=== PATIENT | female | born 1995 | race Caucasian/White ===

== ENCOUNTER 2018-07-29 14:59 | Inpatient (IN) | payer BC, OTHER ==
[2018-07-29] MEDS ORDERED: Ringers Lactate 1,000 ML IV PRN (15:02)
--- OUTSIDE RECORDS SUMMARY | 2018-07-29 15:02 | XMS REPORT ---
:1995 Author Organization eClinicalWorks Care Team Providers Name Role Phone Maricarmen Mcneil Provider Role Unavailable Allergies No Known Allergies Problems Problem Type Condition Code Onset Dates Condition Status Assessment Normal first in second Z34.02 Active trimester Problem Normal in third trimester Z34.93 Active Medications Medication Code Code Instructions Start End Status Dosage System Date Date [facility] [address] - Orally Once a Active 1 tablet day Vitafol [facility] [id number] 3.33-0.333-34.8 January 06, Active 3 tablets Gummies MG Orally Once a 2018 day Results No Known Results Summary Purpose eClinicalWorks Submission
--- OUTSIDE RECORDS SUMMARY | 2018-07-29 15:02 | XMS REPORT ---
:1995 Author Organization eClinicalWorks Care Team Providers Name Role Phone Maricarmen Mcneil Provider Role Unavailable Allergies No Known Allergies Problems Problem Type Condition Code Onset Dates Condition Status Problem Normal first in second Z34.02 Active trimester Medications Medication Code System Code Instructions Start End Date Status Dosage Date Ferralet 90 [facility] [id number] 90-1 MG Orally May 22, Active 1 tablet Once a day 2018 after a meal Results No Known Results Summary Purpose eClinicalWorks Submission
--- OUTSIDE RECORDS SUMMARY | 2018-07-29 15:02 | XMS REPORT ---
:1995 Author Organization eClinicalWorks Care Team Providers Name Role Phone Maricarmen Mcneil Provider Role Unavailable Allergies No Known Allergies Problems Problem Type Condition Code Onset Dates Condition Status Assessment Normal in third trimester Z34.93 Active Problem Normal in third trimester Z34.93 Active Medications Medication Code Code Instructions Start End Status Dosage System Date Date [facility] [address] - Orally Once a Active 1 tablet day Ferralet 90 [facility] 23103473530 90-1 MG Orally May 22, Active 1 tablet Once a day 2018 after a meal Vitafol [facility] [id number] 3.33-0.333-34.8 January 06, Active 3 tablets Gummies MG Orally Once a 2018 day Results No Known Results Immunizations Vaccine Administration Date TDAP > 7 Years-Adacel Jun 12, 2018 Summary Purpose eClinicalWorks Submission
--- OUTSIDE RECORDS SUMMARY | 2018-07-29 15:02 | XMS REPORT ---
:1995 Author Organization eClinicalWorks Care Team Providers Name Role Phone Maricarmen Mcneil Provider Role Unavailable Allergies No Known Allergies Problems Problem Type Condition Code Onset Dates Condition Status Assessment , unspecified gestational Z34.90 Active age Problem Normal first in second Z34.02 Active trimester Medications Medication Code Code Instructions Start End Status Dosage System Date Date Vitafol [facility] [id number] 3.33-0.333-34.8 January 06, Active 3 tablets Gummies MG Orally Once a 2017 Results No Known Results Summary Purpose eClinicalWorks Submission
--- OUTSIDE RECORDS SUMMARY | 2018-07-29 15:02 | XMS REPORT ---
:1995 Author Organization eClinicalWorks Care Team Providers Name Role Phone Maricarmen Mcneil Provider Role Unavailable Allergies No Known Allergies Problems Problem Type Condition Code Onset Dates Condition Status Problem Normal first in second Z34.02 Active trimester Assessment Normal first in second Z34.02 Active trimester Problem Normal in second trimester Z34.92 Active Medications Medication Code Code Instructions Start End Status Dosage System Date Date Vitafol [facility] [id number] 3.33-0.333-34.8 January 06, Active 3 tablets Gummies MG Orally Once a [address] [facility] [address] - Orally Once a Active 1 tablet day Results No Known Results Summary Purpose eClinicalWorks Submission
--- OUTSIDE RECORDS SUMMARY | 2018-07-29 15:02 | XMS REPORT ---
:1995 Author Organization eClinicalWorks Care Team Providers Name Role Phone Zac [place] Provider Role Unavailable Allergies No Known Allergies Problems Problem Type Condition Code Onset Dates Condition Status Problem Uterine size-date discrepancy in O26.843 Active third trimester Problem Normal in third trimester Z34.93 Active Problem Anemia affecting in third O99.013 Active trimester Assessment Uterine size-date discrepancy in O26.843 Active third trimester Assessment Anemia affecting in third O99.013 Active trimester Assessment Normal in third trimester Z34.93 Active Medications Medication Code Code Instructions Start End Status Dosage System Date Date CitraNatal 90 [facility] [id number] 90-1 & 300 MG Jul 10, Active as directed DHA Orally 2017 Ferralet 90 [facility] [id number] 90-1 MG Orally May 22, Active 1 tablet Once a day 2018 after a meal [facility] [address] - Orally Once a Active 1 tablet day Vitafol [facility] [id number] 3.33-0.333-34.8 December Active 3 tablets Gummies MG Orally Once a 2017 day Results No Known Results Summary Purpose eClinicalWorks Submission
--- OUTSIDE RECORDS SUMMARY | 2018-07-29 15:02 | XMS REPORT ---
[...] Start End Status Dosage System Date Date [facility] [address] - Orally Once a Active 1 tablet day Vitafol [facility] [id number] 3.33-0.333-34.8 January 06, Active 3 tablets Gummies MG Orally Once a 2018 day Results No Known Results Summary Purpose eClinicalWorks Submission
--- OUTSIDE RECORDS SUMMARY | 2018-07-29 15:02 | XMS REPORT ---
:1995 Author Organization eClinicalWorks Care Team Providers Name Role Phone Maricarmen Mcneil Provider Role Unavailable Allergies No Known Allergies Problems Problem Type Condition Code Onset Dates Condition Status Problem Normal first in first Z34.01 Active trimester Assessment Normal first in first Z34.01 Active trimester Problem Normal in first trimester Z34.91 Active Medications Medication Code Code Instructions Start End Status Dosage System Date Date [facility] [address] - Orally Once a Active 1 tablet day Vitafol [facility] [id number] 3.33-0.333-34.8 January 06, Active 3 tablets Gummies MG Orally Once a 2018 day Results Name Result Date Reference Range Unit Abnormality Flag URINALYSIS AUTO W/O SCOPE (05332) Summary Purpose eClinicalWorks Submission
--- OUTSIDE RECORDS SUMMARY | 2018-07-29 15:02 | XMS REPORT ---
:1995 Author Organization eClinicalWorks Care Team Providers Name Role Phone Maricarmen Mcneil Provider Role Unavailable Allergies No Known Allergies Problems Problem Type Condition Code Onset Dates Condition Status Assessment Normal first in second Z34.02 Active trimester Problem Normal first in second Z34.02 Active trimester Medications Medication Code Code Instructions Start End Status Dosage System Date Date Vitafol [facility] [id number] 3.33-0.333-34.8 January 06, Active 3 tablets Gummies MG Orally Once a 2018 day [facility] [address] - Orally Once a Active 1 tablet day Results No Known Results Summary Purpose eClinicalWorks Submission
--- OUTSIDE RECORDS SUMMARY | 2018-07-29 15:02 | XMS REPORT ---
:1995 Author Organization eClinicalWorks Care Team Providers Name Role Phone Zac [place] Provider Role Unavailable Allergies No Known Allergies Problems Problem Type Condition Code Onset Dates Condition Status Assessment Anemia affecting in third O99.013 Active trimester Assessment Needs flu shot Z23 Active Problem Anemia affecting in third O99.013 Active trimester Problem Uterine size-date discrepancy in O26.843 Active third trimester Problem Needs flu shot Z23 Active Assessment Normal in third trimester Z34.93 Active Assessment Uterine size-date discrepancy in O26.843 Active third trimester Problem Normal in third trimester Z34.93 Active Medications Medication Code Code Instructions Start End Status Dosage System Date Date Ferralet 90 [facility] 02244134131 90-1 MG Orally May 22, Active 1 tablet Once a day 2018 after a meal CitraNatal 90 [facility] [id number] 90-1 & 300 MG Active as directed DHA Orally 1 [facility] [address] - Orally Once a Active 1 tablet day Vitafol [facility] [id number] 3.33-0.333-34.8 December Active 3 tablets Gummies MG Orally Once a 2017 day Results No Known Results Immunizations Vaccine Administration Date Afluria Jul 16, 2018 Summary Purpose eClinicalWorks Submission
--- OUTSIDE RECORDS SUMMARY | 2018-07-29 15:02 | XMS REPORT ---
:1995 Author Organization eClinicalWorks Care Team Providers Name Role Phone Zac [place] Provider Role Unavailable Allergies No Known Allergies Problems Problem Type Condition Code Onset Dates Condition Status Problem Anemia affecting in third O99.013 Active trimester Problem Uterine size-date discrepancy in O26.843 Active third trimester Problem Needs flu shot Z23 Active Assessment Normal in third trimester Z34.93 Active Assessment Anemia affecting in third O99.013 Active trimester Problem Normal in third trimester Z34.93 Active Medications Medication Code Code Instructions Start End Status Dosage System Date Date Vitafol [facility] [id number] 3.33-0.333-34.8 December Active 3 tablets Gummies MG Orally Once a [address] [facility] [id number] 90-1 MG Orally May 22, Active 1 tablet Once a day 2018 after a meal CitraNatal [address] [facility] 28223749701 90-1 & 300 MG Active as directed DHA Orally [address] [facility] [address] - Orally Once a Active 1 tablet day Results No Known Results Summary Purpose eClinicalWorks Submission
--- OUTSIDE RECORDS SUMMARY | 2018-07-29 15:02 | XMS REPORT ---
:1995 Author Organization eClinicalWorks Care Team Providers Name Role Phone Maricarmen Mcneil Provider Role Unavailable Allergies No Known Allergies Problems Problem Type Condition Code Onset Dates Condition Status Assessment Normal in third trimester Z34.93 Active Problem Normal in third trimester Z34.93 Active Medications Medication Code Code Instructions Start End Status Dosage System Date Date Vitafol [facility] [id number] 3.33-0.333-34.8 January 06, Active 3 tablets Gummies MG Orally Once a 2018 day [facility] [address] - Orally Once a Active 1 tablet day Ferralet 90 [facility] 50612370410 90-1 MG Orally May 22, Active 1 tablet Once a day 2018 after a meal Results No Known Results Summary Purpose eClinicalWorks Submission
--- OUTSIDE RECORDS SUMMARY | 2018-07-29 15:02 | XMS REPORT ---
:1995 Author Organization eClinicalWorks Care Team Providers Name Role Phone Maricarmen Mcneil Provider Role Unavailable Allergies No Known Allergies Problems Problem Type Condition Code Onset Dates Condition Status Problem Normal first in second Z34.02 Active trimester Medications No Known Medications Results No Known Results Summary Purpose eClinicalWorks Submission
[2018-07-29] MEDS ORDERED: Ringers Lactate 1,000 ML IV SCH (16:00)
[2018-07-29 16:17] VITALS: BMI 27.4
[2018-07-29 16:54] LABS: RPR Titer ND
[2018-07-29 17:00] LABS: Absolute Lymphocytes (CBC) 1.6 K/uL (0.7-4.9); Absolute Monocytes 0.6 K/uL (0.1-1.3); Absolute Neutrophil 3.5 K/uL (1.8-8.0); Basophils % 0.8 % (0-1.3); Eosinophils % 0.3 % (0-4.4); Hematocrit 29.1 % (36.0-45.0); Lymphocytes % 27.4 % (15.3-44.8); MCH 27.3 pg (27.0-35.0); MCV 84.6 fL (80-100); MPV 10.4 fL (7.6-11.3); Monocytes % 10.8 % (3.3-12.3); RBC Red Blood Cell Count 3.44 M/uL (3.86-4.86); Urine Appearance CLOUDY; Urine Blood NEGATIVE (NEG); Urine Color DK YELLOW; Urine Glucose NEGATIVE (NEG); Urine Protein 1+ (NEG); Urine Specific Gravity 1.025 (1.005-1.030); Urine Urobilinogen 0.2 mg/dL (0.2-1.0); Urine pH 6.5 (5.0-7.0)
[2018-07-29] MEDS ORDERED: miSOPROStol 100 MCG TAB VAG SCH (17:00)
[2018-07-29 17:28] LABS: Blood Morphology Comment NOT SEEN (NOT SEEN); Platelet Estimate ADEQ; Urine White Blood Cell Casts OK
[2018-07-29 17:36] LABS: Urine Bilirubin NEGATIVE (NEG); Urine Microscopic Reflex ORDER UMIC
[2018-07-29 17:45] LABS: Urine Bacteria 20-50 /HPF (<20); Urine Culture Reflex Order NOT NEEDED; Urine Mucus MOD /HPF (NONE SEEN); Urine RBC NONE SEEN /HPF (NONE SEEN)
[2018-07-29] MEDS ORDERED: ZOLPIDEM TARTRATE 5 MG TABLET PO PRN (19:24)
[2018-07-29] MEDS ORDERED: LORATADINE 10 MG TAB PO ONE (19:25)
[2018-07-29 22:19] LABS: RPR (Rapid Plasma Reagin) NON-REACT (NON-REACT)
--- NOTE | 2018-07-29 22:45 | P.OBGYNHP ---
Certification for Inpatient Patient admitted to: Inpatient With expected LOS: >2 Midnights Patient will require the following post-hospital care: None Practitioner: I am a practitioner with admitting privileges, knowledge of patient current condition, hospital course, and medical plan of care. Services: Services provided to patient in accordance with Admission requirements found in Title 42 Section 412.3 of the Code of Federal Regulations Patient History Date of Service: 07/29/18 Reason for admission: Induction of labor for oligohydramnios History of Present Illness: Patient is a 22 y/o at 37 weeks and 4 days gestation who has been admitted to labor and delivery for induction of labor secondary to oligohydramnios. Patient was scheduled for a routine growth ultrasound today and was noted to have an MARIA D of 4cm. Patient denies vaginal bleeding, no loss of fluid, irregular contractions and reports good movements. She states she has been hydrating well. NIPT & anatomy sono reveal low risk male fetus. See record for more details. Tdap administered 06/12/2018 Flu Shot given- 07/16/18 Allergies No Known Allergies Allergy (Unverified 12/15/17 18:57) - Past Medical/Surgical History Has patient received pneumonia vaccine in the past: No -: post streptococcal glomerulonephritis - Social History Smoking Status: Never smoker Alcohol use: No CD- Drugs: No Caffeine use: No Place of Residence: Home Review of Systems 10-point ROS is otherwise unremarkable Physical Examination - Vital Signs Temperature: 98.2 F Blood Pressure: 137/99 Pulse: 94 Respirations: 20 - General General: Alert and in no apparent distress, Alert, Oriented x3 HEENT: Atraumatic Neck: Supple Respiratory: Normal air movement Cardiovascular: No edema, Normal pulses Breasts: Normal configuration Musculoskeletal: No clubbing, No swelling Integumentary: No rashes, No breakdown - Female Pelvic External genitalia: Normal Vagina: Normal, Ucon, Moist Cervix: Normal, Dilation (fingertip), Effacement (long), station (-3) Uterus: Gravid Adnexa: Unable to evaluate - Obstetrics heart rate tracing: Category 2 Contractions: Other (irregular) Amniotic membrane: Intact Laboratory Data (last 24 hrs) 07/29/18 15:10: WBC 5.8, Hgb 9.4 L, Hct 29.1 L, Plt Count 221 10/17/18 15:02: WBC Cancelled, Hgb Cancelled, Hct Cancelled, Plt Count Cancelled Assessment and Plan - Plan Patient is a 22 y/o at 37 weeks and 4 days gestation who presents for induction of labor due to oligohydramnios and now also has slightly elevated blood pressure and proteinuria. Patient has received one dose of misoprostol 25 mcg. Next dose in 4 hours. Intermittent monitoring. GBS negative. Will perform AROM at next exam. Continue blood pressure monitoring and assess for signs of preeclampsia. Discharge Plan: Home Plan to discharge in: 72 Hours - Advance Directives Does patient have a Living Will: No Does patient have a Durable POA for Healthcare: No
[2018-07-30] MEDS ORDERED: BUTORPHANOL 1 MG/ML INJ ONE (04:42)
[2018-07-30] MEDS ORDERED: BUTORPHANOL 1 MG/ML INJ IV PRN (04:45)
[2018-07-30 05:46] LABS: Absolute Lymphocytes (CBC) 1.7 K/uL (0.7-4.9); Absolute Monocytes 0.6 K/uL (0.1-1.3); Absolute Neutrophil 5.1 K/uL (1.8-8.0); Basophils % 0.3 % (0-1.3); Eosinophils % 0.3 % (0-4.4); Lymphocytes % 22.7 % (15.3-44.8); MCH 27.6 pg (27.0-35.0); MCV 83.8 fL (80-100); MPV 9.7 fL (7.6-11.3); Monocytes % 8.2 % (3.3-12.3); RBC Red Blood Cell Count 3.46 M/uL (3.86-4.86)
[2018-07-30 05:53] LABS: ALT/SGPT 20 U/L (12-78); AST/SGOT 21 U/L (15-37); Albumin 2.2 g/dL (3.4-5.0); Alkaline Phosphatase 151 U/L (45-117); BUN Blood Urea Nitrogen 8 mg/dL (7-18); Bicarbonate 23 mmol/L (21-32); Bilirubin Total 0.2 mg/dL (0.2-1.0); Glucose Level 70 mg/dL (74-106); Sodium Level 140 mmol/L (136-145)
[2018-07-30] MEDS ORDERED: LORATADINE 10 MG TAB PO ONE (07:30)
[2018-07-30] MEDS ORDERED: FENTANYL/BUPIVACAINE/NS/PF 200 MCG/100 ML BAG EP PRN (08:40)
[2018-07-30] MEDS ORDERED: BUPIVACAINE 0.25% PF 10 ML VIAL IV PRN (08:40)
[2018-07-30] MEDS ORDERED: FENTANYL CITR 100 MCG/2 ML IV ONE (08:41)
[2018-07-30] MEDS ORDERED: FLUTICASONE 50MCG NASAL SPRAY NAS SCH (09:00)
[2018-07-30] MEDS ORDERED: OXYTOCIN/LR 20 UNIT/1,000 ML BAG IV SCH (10:28)
[2018-07-30] MEDS ORDERED: CARBOPROST TROME 250 MCG/ML IM ONE (11:35)
[2018-07-30] MEDS ORDERED: METHYLERGONOVINE 0.2MG/ML AMP IM ONE (11:35)
[2018-07-30] MEDS ORDERED: BUPIVACAINE 0.25% PF 10 ML VIAL ONE (12:14)
[2018-07-30] MEDS ORDERED: FENTANYL CITR 100 MCG/2 ML ONE ×2 (12:14→12:34)
[2018-07-30] MEDS ORDERED: LIDOCAINE 2% INJ, 20 mL 20 ML ONE (13:03)
[2018-07-30] MEDS ORDERED: miSOPROStol 100 MCG TAB ONE (13:15)
[2018-07-30] MEDS ORDERED: ONDANSETRON 4 MG/2 ML VIAL IV ONE (13:55)
[2018-07-30] MEDS ORDERED: ONDANSETRON 4 MG/2 ML VIAL ONE (14:04)
[2018-07-30 15:20] LABS: Absolute Lymphocytes (CBC) 0.8 K/uL (0.7-4.9); Absolute Monocytes 0.8 K/uL (0.1-1.3); Absolute Neutrophil 12.5 K/uL (1.8-8.0); Basophils % 0.2 % (0-1.3); Hematocrit 25.6 % (36.0-45.0); Lymphocytes % 5.6 % (15.3-44.8); MCH 27.1 pg (27.0-35.0); MCV 82.9 fL (80-100); MPV 9.6 fL (7.6-11.3); Monocytes % 5.9 % (3.3-12.3); RBC Red Blood Cell Count 3.09 M/uL (3.86-4.86)
[2018-07-30] MEDS ORDERED: METHYLERGONOVINE 0.2 MG TAB PO PRN (16:06)
[2018-07-30] MEDS ORDERED: BISACODYL 10 MG RECTAL SUPP RECT PRN (16:06)
[2018-07-30] MEDS ORDERED: IBUPROFEN 200 MG TAB PO PRN (16:06)
[2018-07-30] MEDS ORDERED: ONDANSETRON 4 MG (ODT) TAB PO PRN (16:06)
[2018-07-30] MEDS ORDERED: DOCUSATE NA/SENNA CONC 1 TAB PO PRN (16:06)
[2018-07-30] MEDS ORDERED: ACETAMINOPHEN 500 MG TAB PO PRN (16:06)
[2018-07-30 16:30] LABS: Anisocytosis 1+; Blood Morphology Comment NOTED (NOT SEEN); Platelet Estimate ADEQ; Platelets, Giant FEW; Polychromasia SLIGHT; Urine White Blood Cell Casts OK
--- NOTE | 2018-07-30 16:48 | P.OP ---
Date of Service: 07/30/18 Findings and Operative Technique The patient delivered a viable male infant in cephalic presentation on July 30, 2018 at 1300 via vacuum assisted vaginal delivery due to bradycardia and poor maternal effort. Episiotomy had been performed. Once 's head was delivered shoulder dystocia was in countered. The 's left arm was also pre stenting therefore there was a compound presentation. Gentle traction was performed suprapubic pressure was applied as well as make Thien procedure and the was subsequently delivered easily. Once the was delivered nose and mouth were suctioned. Cord was clamped and cut and infant was handed off to nurse for assessment. Apgars were assigned of 8 and 9. Attention was then turned to the placenta which was delivered with gentle traction at 1305. Once the placenta was delivered it was noted to be intact. Attention was then turned to the perineum episiotomy was a second-degree. However the medial leaf the uterus was massaged due to extensive bleeding. Bleeding was still not controlled therefore methargen was given IM. Following this 100 mcg of Cytotec was placed rectally. This then improved the bleeding significantly. Attention was then turned to the episiotomy and this was repaired with a 2 0 Vicryl in the usual fashion. Stage I of labor was 3 hr and 42 min stage II was 1 hr. Patient is doing well. hemorrhage had been encounter therefore a hematocrit will be drawn. Estimated blood loss was noted to be 500 cc. Patient's vital signs are currently stable she is afebrile. Hematocrit will be drawn to assess whether blood transfusion is needed. If patient's hematocrit is within range and her vitals are stable we will hold off on transfusion and repeat a hematocrit in the morning.
[2018-07-30] MEDS: Oxycodone HCl/Acetaminophen 1 TAB TAB PO PRN (18:45)
[2018-07-30] MEDS ORDERED: FERROUS SULFATE 325 MG TAB PO SCH (21:00)
[2018-07-31] MEDS: Oxycodone HCl/Acetaminophen 1 TAB TAB PO PRN ×2 (07:25→15:15)
[2018-07-31] MEDS ORDERED: DOCUSATE NA 100 MG CAP PO PRN (08:35)
[2018-07-31] MEDS ORDERED: PRENATAL VITAMIN PO SCH (09:00)
[2018-07-31 12:16] VITALS: TEMP 97.3
[2018-07-31 16:54] VITALS: BP 133/78
--- NOTE | 2018-07-31 22:29 | P.DS ---
Admission Date: 07/29/18 Discharge Date: 07/31/18 Disposition: ROUTINE DISCHARGE Discharge Condition: GOOD Reason for Admission: Induction of labor for oligohydramnios Brief History of Present Illness: Patient is a 22 y/o at 37 weeks and 4 days gestation who has been admitted to labor and delivery for induction of labor secondary to oligohydramnios. Patient was scheduled for a routine growth ultrasound today and was noted to have an MARIA D of 4cm. Patient denies vaginal bleeding, no loss of fluid, irregular contractions and reports good movements. She states she has been hydrating well. NIPT & anatomy sono reveal low risk male fetus. See record for more details. Tdap administered 06/12/2018 Flu Shot given- 07/16/18 Hospital Course: Patient did well following delivery and is bonding well with the baby. She is doing great. No pain. No fevers Vital Signs/Physical Exam: Temp Pulse Resp BP Pulse Ox 97.3 F 87 18 133/78 07/31/18 16:00 07/31/18 16:00 07/31/18 16:00 07/31/18 16:00 General: Alert, In no apparent distress HEENT: Atraumatic Neck: Supple Respiratory: Normal air movement Cardiovascular: No edema, Normal pulses Gastrointestinal: Soft and benign (Fundus ) Musculoskeletal: No clubbing, No swelling Integumentary: No rashes Laboratory Data at Discharge: WBC 14.1 K/uL (4.3-10.9) H D 07/30/18 15:06 Hgb 8.4 g/dL (12.0-15.0) L 07/30/18 15:06 Hct 19.3 % (36.0-45.0) L* D 07/31/18 05:59 Plt Count 212 K/uL (152-406) 07/30/18 15:06 Sodium 140 mmol/L (136-145) 07/30/18 05:16 Potassium 4.0 mmol/L (3.5-5.1) 07/30/18 05:16 BUN 8 mg/dL (7-18) 07/30/18 05:16 Creatinine 0.60 mg/dL (0.55-1.3) 07/30/18 05:16 Glucose 70 mg/dL (74-106) L 07/30/18 05:16 Uric Acid 6.0 mg/dL (2.6-6.0) 07/30/18 05:16 Total Bilirubin 0.2 mg/dL (0.2-1.0) 07/30/18 05:16 AST 21 U/L (15-37) 07/30/18 05:16 ALT 20 U/L (12-78) 07/30/18 05:16 Alkaline Phosphatase 151 U/L (45-117) H 07/30/18 05:16 Home Medications: Pnv72/Iron,Carb&Glu/FA/Dss/Dha [Citranatal 90 Dha Combo Pack] 1 tab PO DAILY Diet: Regular Activity: No lifting more than 10 lbs Followup: Zac [place], [ACTIVE - CAN ADMIT] - (Follow up with Dr. [place] in 6 weeks for check-up )
[2018-08-01 20:02] LABS: HBsAG Nonreactive (Nonreactive)
== END 2018-07-31 16:50 | disposition home or self-care (01) | DRG 768 ==
LOC: 2ND-WC 14:59
PROVIDERS: ADMIT Student in an Organized Health Care Education/Training Program; ATTEND Student in an Organized Health Care Education/Training Program
PROC: 3E033VJ Introduction of Other Hormone into Peripheral Vein, Percutaneous Approach (ICD-10-PCS; principal; 2018-07-30)
PROC: 0W3J3ZZ Control Bleeding in Pelvic Cavity, Percutaneous Approach (ICD-10-PCS; 2018-07-30)
PROC: 10D07Z6 Extraction of Products of Conception, Vacuum, Via Natural or Artificial Opening (ICD-10-PCS; 2018-07-30)
PROC: 0KQM0ZZ Repair Perineum Muscle, Open Approach (ICD-10-PCS; 2018-07-30)
PROC: 0W8NXZZ Division of Female Perineum, External Approach (ICD-10-PCS; 2018-07-30)
DX: O41.03X0 Oligohydramnios, third trimester, not applicable or unspecified (principal); Z37.0 Single live birth; O72.1 Other immediate postpartum hemorrhage; O12.14 Gestational proteinuria, complicating childbirth; O76 Abnormality in fetal heart rate and rhythm complicating labor and delivery; O66.0 Obstructed labor due to shoulder dystocia; O32.6XX0 Maternal care for compound presentation, not applicable or unspecified; O70.1 Second degree perineal laceration during delivery; Z3A.37 37 weeks gestation of pregnancy
CPT/HCPCS: 36415; 76805; 80053; 81003; 81015; 84550; 85014; 85025; 86592; 86850; 86900; 86901; 87340; J0595; J2210; J2405; J2590; J3010

== ENCOUNTER 2025-01-25 22:52 | Emergency (ER) | payer BC, OTHER ==
--- OUTSIDE RECORDS SUMMARY | 2025-01-25 23:00 | XMS REPORT | Continuity of Care Document ---
Author Name Unknown Address [address] [facility] [place] [address] [facility] Address [address] [facility] [address] [place] [address] Care Team Providers Care Construction Lineman Name Role Phone Pcp, Patient Does Not Have A Primary Care Physic yuki BINH ROBBINS Attending Clinician Unavailable DAFNE OSEI Attending Clinician Unavailable Farnaz MOTION PICTURE SET GRIPDafne Aleman Attending Clinician [phone] Lis Parry Attending Clinician Unavailab le Doctor Unassigned, Gilbert Attending Clinician U patrick Robbins MD, Binh Temple Attending Clinician [phone] Jessica Jeong MD Attending Clinician [phone] Fredi Burns MD Attending Clinician [phone] [facility] Nst Attending Clinician Unavailable MERLY VALVERDE Attending Clinician MERLY Aldana Attending Clinician Danish kim GC_GCBZW_Jose Alberto_Becky Attending Clinician Unavaila ble 2, [facility] Attending Clinician Unavailable QUAN BARBOZA Attending Clinician Unavailable QUAN BARBOZA Attending Clinician Unavailable Ultrasound, Ang-Mfm Attending Clinician Unavaila ble Pob, [facility] Main Attending Clinician Unavailedward Cleveland MD, Sharon Strong Attending Clinician [phone] SANDRITA MARCUS Attending Clinician Unavaila ble TRITSCHLER, CHERYAL Attending Clinician Unavaila ble Mathew Foley PA-C Attending Clinician [phone] WATERS_S Attending Clinician Unavailable Deirdre Swanson Attending Clinician [phone] MATHEW FOLEY Attending Clinician Unavailable JAVAN CHEN Attending Clinician Unavailable SHARON CLEVELAND Attending Clinician Unavailable BINH ROBBINS Admitting Clinician Unavailable Binh Robbins MD Admitting Clinician MERLY VALVERDE Admitting Clinician Danish kim [email or web address]_S Admitting Clinician Unavaila ble WATERS_S Admitting Clinician Unavailable Payers Payer Name Policy Type Policy Number Effective Date Expirati on Date Source [facility] [id number] 2020 00:00:[address] [facility] [id number] 2022 00:00:00 MEDICAID [place] [id number] 2020 00:00:00 BCBS-ID:[facility] [id number] 2017 00:00:00 Problems Condition Name Condition Details Condition Category Status Onset Date Resolution Date Last Treatment Date Treating Clinician Comments Source Maternal varicella, non-immune Maternal varicella, non-immune Disease Active 05-13 00:00: 00 [facility] Encounter for screening for maternal depression Encounter for screening for maternal depression Disease Active 11-01 00:00: 00 [facility] 34 weeks gestation of 34 weeks gestation of Disease Active 2019-10 2- 00:00: 00 [facility] Nausea and vomiting during prior to 22 weeks gestation Nausea and vomiting during prior to 22 weeks gestation Disease Active 6-03 00:00: 00 [facility] Normal in third trimester Normal in third trimester Problem Active [facility] Uterine size-date discrepanc y in third trimester Uterine size-date discrepanc y in third trimester Problem Active [facility] Anemia affecting in third trimester Anemia affecting in third trimester Problem Active [facility] Needs flu shot Needs flu shot Problem Active [facility] Encounter for routine follow-up Encounter for routine follow-up Problem Active [facility] Encounter for initial prescripti on of contracept triny pills Encounter for initial prescripti on of contracept triny pills Problem Active [facility] 39 weeks gestation of 39 weeks gestation of Disease Resolve d 2023-0 1-08 00:00: 00 2023-11-20 00:00:00 2023-11-20 16:13:28 [facility] High-risk in third trimester High-risk in third trimester Disease Resolve d 2022-0 6-28 00:00: 00 2023-11-20 00:00:00 2023-11-20 15:28:10 [facility] History of macrosomia in in prior , currently History of macrosomia in in prior , currently Disease Resolve d 2022-0 6-28 00:00: 00 2023-11-20 00:00:00 2023-11-20 16:13:29 [facility] Liveborn , of luis , born in hospital by vaginal delivery Liveborn infant, of luis , born in hospital by vaginal delivery Disease Resolve d 2019-1 2-22 00:00: 00 2023-11-20 00:00:00 2023-11-20 16:13:30 [facility] Vomiting Vomiting Disease Resolve d 2019-0 6-03 00:00: 00 2023-11-20 00:00:00 2023-11-20 16:13:31 [facility] uterine contractio ns, antepartum , third trimester uterine contractio ns, antepartum , third trimester Disease Resolve d 2022-1 2-04 00:00: 00 2023-10-15 00:00:00 2023-10-15 15:23:15 [facility] 35 weeks gestation of 35 weeks gestation of Disease Resolve d 2019-1 2-22 00:00: 00 2023-10-08 00:00:00 2023-10-08 23:52:25 [facility] Well woman exam with routine gynecologi elias exam Well woman exam with routine gynecologi elias exam Disease Resolve d 1- 00:00: 00 2023-04-09 00:00:00 2023-04-09 10:50:06 [facility] Nexplanon removal Nexplanon removal Disease Resolve d 1-03 00:00: 00 2022-11-01 00:00:00 2022-11-01 09:13:44 [facility] Consultati on for female sterilizat ion Consultati on for female sterilizat ion Disease Resolve d -18 00:00: 00 2022-11-01 00:00:00 2022-11-01 09:13:45 [facility] BMI 22.0-22.9, adult BMI 22.0-22.9, adult Disease Resolve d 5-18 00:00: 00 2022-11-01 00:00:00 2022-11-01 09:13:52 [facility] Encounter for elective induction of labor Encounter for elective induction of labor Disease Resolve d 2019-10 2- 00:00: 00 2020-11-06 00:00:00 2020-11-06 14:48:53 [facility] Anemia of mother in , antepartum Anemia of mother in , antepartum Disease Resolve d 2019-10 0-19 00:00: 00 2020-11-06 00:00:00 2020-11-06 15:15:52 [facility] High-risk in third trimester High-risk in third trimester Disease Resolve d 6-03 00:00: 00 2020-11-06 00:00:00 2023-10-20 06:30:34 [facility] Threatened miscarriag e Threatened miscarriag e Disease Resolve d 5-06 00:00: 00 2020-03-15 00:00:00 2020-03-15 10:56:34 [facility] Vaginal spotting Vaginal spotting Disease Resolve d 5-06 00:00: 00 2020-03-15 00:00:00 2020-03-15 10:56:12 [facility] Allergies, Adverse Reactions, Alerts Allergy Name Allergy Type Status Severity Reaction(s) Onset Date Inactive Date Treating Clinician Comments Source NO KNOWN ALLERGIE S Drug Class Active [facility] Social History Social Habit Start Date Stop Date Quantity Comments Source ASSERTION 2023-02-02 00:00:00 Not [facility] History of Occupation [facility] Alcoholic beverage intake 2024-03-17 00:00:00 2024-03-17 00:00:00 Ex-drinker (finding) [facility] Alcohol intake 2023-11-20 00:00:00 2023-11-20 00:00:00 Ex-drinker (finding) [facility] History of Social function 2023-07-14 00:00:00 2023-07-14 00:00:00 [facility] Exposure to SARS-CoV-2 (event) 2022-10-05 00:00:00 2022-10-15 08:46:00 Not sure [facility] Tobacco use and exposure 2022-10-15 00:00:00 2022-10-15 00:00:00 Smokeless tobacco non-user [facility] History SDOH Financial 2020-10-03 00:00:00 2020-10-03 00:00:00 5 [facility] Education 2020-10-03 00:00:00 2020-10-03 00:00:00 13 [facility] Sex assigned at 1995 00:00:00 1995 00:00:00 [facility] Smoking Status Start Date Stop Date Source Never smoked tobacco [facility] Medications Ordered Medication Name Filled Medication Name Start Date Stop Date Current Medication? Ordering Clinician Indication Dosage Frequency Signature (SIG) Comments Components Source famotidine (PEPCID AC) tablet 20 mg 01-25 14:00: 00 01-25 13:54 :00 No 20mg 20 mg, Oral, ONCE, 1 dose, On Fri01/25/25 at 0900, QUITA [facility] predniSONE (DELTASONE) tablet 60 mg 01-25 14:00: 00 01-25 13:54 :00 No 60mg 60 mg, Oral, ONCE, 1 dose, On Fri01/25/25 at 0900, QUITA [facility] diphenhydrA MINE (BENADRYL) 12.5 mg/5 mL elixir 12.5 mg 01-25 14:00: 00 01-25 14:00 :00 No 12.5mg 12.5 mg, Oral, Once, 1 dose, On Fri01/25/25 at 0900, Routine [facility] methylPREDN ISolone 4 mg tablets 01-25 00:00: 00 Yes [id number] Take by mouth SEE-INSTRU CTIONS. follow package directions [facility] famotidine (PEPCID) 20 mg tablet 01-25 00:00: 00 01-29 04:59 :00 Yes [id number] 20mg Take 1 tablet by mouth in the morning and 1 tablet in the evening. Do all this for 3 days. [facility] Lactobacill us acidophilus (PROBIOTIC ORAL) 10-21 17:05: 26 Yes Take by mouth. [facility] ferrous sulfate tablet 325 mg 10-21 16:30: 00 Yes 325mg 325 mg, Oral, BID, First dose on Fri10/21/23 at 1030, Until Discontinu ed, Routine [facility] PNV no.95/domingo us fum/folic ac ( ORAL) 10-21 08:34: 26 10-21 00:00 :00 No Take by mouth. [facility] vitamin w/FA tablet 10-21 00:00: 00 Yes [id number] 102 1{tbl} Take 1 tablet by mouth in the morning. [facility] docusate 100 mg capsule 10-21 00:00: 00 Yes [id number] 102 200mg Take 2 capsules by mouth once daily as needed for Constipati on. [facility] ferrous sulfate 325 mg (65 mg iron) tablet 10-21 00:00: 00 Yes [id number] 102 325mg Take 1 tablet by mouth in the morning and 1 tablet in the evening. [facility] ibuprofen 600 mg tablet 10-21 00:00: 00 Yes [id number] 102 600mg Take 1 tablet by mouth every 6 (six) hours as needed (Pain). Take with food or milk. [facility] rho(D) immune globulin (RHOGAM) syringe 300 mcg 10-20 20:00: 58 Yes 300ug 300 mcg, Intramuscu lar, ONCE, For 1 dose, Conditiona l, Routine [facility] witch Nicola (TUCKS) 50 % topical pad 10-20 20:00: 53 Yes Topical, Q4HPRN, Starting on Fri10/20/23 at 1400, Until Discontinu ed, Routine, rectal/hem orrhoidal pain [facility] HYDROcodone -acetaminop hen (NORCO 5) 5-325 mg tablet 1 tablet 10-20 20:00: 53 Yes 1{tbl} 1 tablet, Oral, Q6HPRN, Starting on Fri10/20/23 at 1400, Until Discontinu ed, Routine, Pain (scale 7-10) [facility] ibuprofen (IBU) tablet 600 mg 10-20 20:00: 53 Yes 600mg 600 mg, Oral, Q6HPRN, Starting on Fri10/20/23 at 1400, Until Discontinu ed, Routine, Pain (scale 4-6) [facility] acetaminoph en (TYLENOL) tablet 650 mg 10-20 20:00: 53 Yes 650mg 650 mg, Oral, Q6HPRN, Starting on Fri10/20/23 at 1400, Until Discontinu ed, Routine, Pain (scale 1-3) [facility] diphenhydrA MINE (BENADRYL) tablet 25 mg 10-20 20:00: 53 Yes 25mg 25 mg, Oral, Q6HPRN, Starting on Fri10/20/23 at 1400, Until Discontinu ed, Routine, Sleep, Itching [facility] ondansetron (ZOFRAN (PF)) injection 4 mg 10-20 20:00: 53 Yes 4mg 4 mg, Slow IV Push, Q8HPRN, Starting on Fri10/20/23 at 1400, Until Discontinu ed, Routine, Nausea and Vomiting (N/V) [facility] simethicone (GAS RELIEF (SIMETHICON E)) chewable tablet 160 mg 10-20 20:00: 53 Yes 160mg 160 mg, Oral, PC+HSPRN, Starting on Fri10/20/23 at 1400, Until Discontinu ed, Routine, Gas [facility] docusate (COLACE) capsule 200 mg 10-20 20:00: 53 Yes 200mg 200 mg, Oral, QDAILYPRN, Starting on Fri10/20/23 at 1400, Until Discontinu ed, Routine, Constipati on [facility] magnesium hydroxide (MILK OF MAGNESIA) 400 mg/5 mL suspension 30 mL 10-20 20:00: 53 Yes 30mL 30 mL, Oral, QDAILYPRN, Starting on Fri10/20/23 at 1400, Until Discontinu ed, Routine, Constipati on [facility] benzocaine- menthol (DERMOPLAST ) 20-0.5 % topical spray 10-20 20:00: 53 Yes Topical, PRN, Starting on Fri10/20/23 at 1400, Until Discontinu ed, Routine, Perineum discomfort [facility] PNV no.95/domingo us fum/folic ac ( ORAL) 10-20 13:30: 10 Yes Take by mouth. [facility] fentaNYL-ro pivacaine 2 mcg/mL-0.1 % (PF) in NS 200 mL epidural infusion RTU 10-20 13:17: 00 10-20 20:46 :03 No Epidural, ONCE INTRA PROCEDURE, Starting on Fri10/20/23 at 0717, Until Discontinu ed, Routine, Intra-op [facility] lidocaine-e pinephrine (XYLOCAINE W/EPINEPHRI NE) 1.5 %-1:200,000 injection 10-20 13:13: 00 10-20 20:46 :03 No Intraderma l, ONCE INTRA PROCEDURE, Starting on Fri10/20/23 at 0713, Until Discontinu ed, Routine, Intra-op [facility] lactated ringers IV infusion 1,000 mL 10-20 13:00: 00 10-20 12:03 :00 No 1000mL at 999 mL/hr, 1,000 mL, IV Infusion, ONCE, 1 dose, On Fri10/20/23 at 0700, STAT [facility] famotidine (PEPCID (PF)) injection 20 mg 10-20 11:44: 23 10-20 20:00 :57 No 20mg 20 mg, Slow IV Push, [id number], Starting on Fri10/20/23 at 0544, Until Fri10/20/23 at 1400, Routine, Indigestio n [facility] ondansetron (ZOFRAN (PF)) injection 4 mg 10-20 10:15: 00 10-20 20:00 :57 No 4mg 4 mg, Slow IV Push, Q8HPRN, Nausea and Vomiting (N/V), Starting on Fri10/20/23 at 0415
Do ses of ondansetro n 16 mg and above need to be administer ed via IV piggyback. For Dose >=24mg ECG monitoring is advisable.
[facility] oxytocin (PITOCIN) 30 units in NS 500 mL IV infusion 10-20 10:15: 00 10-20 20:00 :57 No 2mU/min at 2-40 mL/hr, IV Infusion, TITRATE, Starting on Fri10/20/23 at 0415, Until Fri10/20/23 at 1400, QUITA [facility] D5W-LR IV infusion 1,000 mL 10-20 10:14: 59 10-20 20:00 :57 No 1000mL at 1-125 mL/hr, IV Infusion, TITRATE, Starting on Fri10/20/23 at 0414, Until Fri10/20/23 at 1400, Routine [facility] calcium carbonate (TUMS ORAL) 2022-10 15:42: 15 Yes Take by mouth. [facility] metroNIDAZO LE (FLAGYL) 500 mg tablet 2022-10 00:00: 00 09-30 05:59 :00 No [id number] 500mg Take 1 tablet by mouth in the morning and 1 tablet in the evening. Do all this for 7 days. [facility] metroNIDAZO LE (FLAGYL) tablet 500 mg 2022-10 19:45: 00 09-21 19:50 :00 No 500mg 500 mg, Oral, ONCE, 1 dose, On Fri09/21/23 at 1345, Routine
Reason for Anti-Infec tive: Documented Infection< br>Documen marlen Infection Site: Other
O ther site: vaginal
Duration of Therapy: Other (see Comments) [facility] calcium carbonate (TUMS ORAL) 2022-10 13:56: 39 Yes Take by mouth. [facility] PNV no.95/domingo us fum/folic ac ( ORAL) 2022-10 11:52: 42 Yes Take by mouth. [facility] KCL (KLOR-CON M20) tablet 40 mEq 2022-10 01:00: 00 09-17 00:56 :00 No 40meq 40 mEq, Oral, ONCE, 1 dose, On Fri09/16/23 at 1900, Routine [facility] potassium chloride in water 10 mEq/100 mL RTU 10 mEq 2022-10 17:45: 00 09-15 18:28 :00 No 10meq 10 mEq, IV Piggyback, ONCE, 1 dose, On Fri09/15/23 at 1145, Administer over 60 Minutes, 100 mL [facility] betamethaso ne acet,sod phos (CELESTONE SOLUSPAN) 6 mg/mL injection 12 mg 2022-10 17:15: 00 09-16 17:28 :00 No 12mg 12 mg, Intramuscu lar, Q24H, 2 doses, First dose on Fri09/15/23 at 1115, Last dose on Fri09/16/23 at 1115, Routine [facility] potassium chloride in water 10 mEq/100 mL RTU 10 mEq 2022-10 16:45: 00 09-15 17:32 :00 No 10meq 10 mEq, IV Piggyback, ONCE, 1 dose, On Fri09/15/23 at 1045, Administer over 60 Minutes, 100 mL [facility] potassium chloride in water 10 mEq/100 mL RTU 10 mEq 2022-10 15:30: 00 09-15 16:34 :00 No 10meq 10 mEq, IV Piggyback, ONCE, 1 dose, On Fri09/15/23 at 0930, Administer over 60 Minutes, 100 mL [facility] NaCl 0.9% (NS) IV infusion 1,000 mL 2022-10 14:30: 00 Yes 1000mL at 125 mL/hr, IV Infusion, CONTINUOUS , Starting on Fri09/15/23 at 0830, Until Discontinu ed, Routine [facility] potassium chloride in water 10 mEq/100 mL RTU 10 mEq 2022-10 14:30: 00 09-15 15:31 :00 No 10meq 10 mEq, IV Piggyback, ONCE, 1 dose, On Fri09/15/23 at 0830, Administer over 60 Minutes, 100 mL [facility] famotidine (PEPCID (PF)) injection 20 mg 2022-10 14:00: 00 Yes 20mg 20 mg, Slow IV Push, Q12H, First dose on Fri09/15/23 at 0800, Until Discontinu ed, Routine [facility] FENTanyl PF (SUBLIMAZE (PF)) injection 50 mcg 2022-10 06:15: 00 09-15 05:28 :00 No 50ug 50 mcg, Slow IV Push, ONCE, 1 dose, On Fri09/15/23 at 0015, Routine [facility] proMETHazin e (PHENERGAN) 25 mg in NS 50 mL IV piggyback (CNR) 2022-10 05:19: 18 09-17 00:00 :56 No 25mg 25 mg, IV Piggyback, at 200 mL/hr Administer over 15 Minutes, Q4HPRN, Starting on Fri09/14/23 at 2319, Until Fri09/16/23 at 1800, Routine, Nausea and Vomiting (N/V) [facility] maalox:diph enhydrAMINE :lidocaine 2 % viscous 1:1:1 (FIRST-MOUT HWASH BLM) oral suspension 15 mL 2022-10 04:45: 00 09-15 04:07 :00 No 15mL 15 mL, Oral, ONCE, 1 dose, On Fri09/14/23 at 2245, Routine [facility] acetaminoph en (TYLENOL) tablet 650 mg 2022-10 03:48: 41 Yes 650mg 650 mg, Oral, PRN, 1 dose, Starting on Fri09/14/23 at 2148, Until Discontinu ed, Routine, Pain (scale 4-6), To be taken if GI cocktail does not work for patient [facility] NaCl 0.9% (NS) bolus infusion 1,000 mL 2022-10 03:00: 00 09-15 04:00 :00 No 1000mL at 999 mL/hr, 1,000 mL, IV Piggyback, ONCE, 1 dose, On Fri09/14/23 at 2100, Routine [facility] terbutaline (BRETHINE) injection 0.25 mg 2022-10 02:13: 37 Yes .25mg 0.25 mg, Subcutaneo us, PRN - SEE INSTRUCTIO NS, Starting on Fri09/14/23 at 2012, Until Discontinu ed, Routine, Surgery/Pr ocedure, Give if contractio ns are unresolved after fluid boluses [facility] metoclopram sergio HCl (REGLAN) injection 10 mg 2022-10 02:13: 17 Yes 10mg 10 mg, Slow IV Push, Q6HPRN, Starting on Fri09/14/23 at 2012, Until Discontinu ed, Routine, Nausea and Vomiting (N/V) [facility] docosahexae noic acid/epa (FISH OIL ORAL) 2022-10 16:03: 59 09-09 00:00 :00 No Take by mouth. [facility] cyanocobala min, vitamin B-12, (VITAMIN B12 ORAL) 2022-10 16:03: 34 09-09 00:00 :00 No Take by mouth. [facility] calcium carbonate (TUMS ORAL) 2022-10 15:54: 14 Yes Take by mouth. [facility] PNV no.95/domingo us fum/folic ac ( ORAL) 07-11 15:40: 01 Yes Take by mouth. [facility] metroNIDAZO LE (FLAGYL) tablet 500 mg 07-11 00:46: 00 07-11 00:56 :00 No 500mg 500 mg, Oral, ONCE, 1 dose, On Zarina 07/10/23 at 2000, Routine
Reason for Anti-Infec tive: Empiric Non-Surgic al Prophylaxi s
Durat ion of therapy: 72 hours [facility] metroNIDAZO LE (FLAGYL) 500 mg tablet 07-11 00:00: 00 09-09 00:00 :00 No [id number] 500mg Take 1 tablet by mouth every 12 (twelve) hours. [facility] PNV no.95/domingo us fum/folic ac ( ORAL) 07-10 21:06: 51 Yes Take by mouth. [facility] Lactobacill us acidophilus (PROBIOTIC ORAL) 06-11 12:55: 25 Yes Take by mouth. [facility] calcium carbonate/v itamin D3 (VITAMIN D-3 ORAL) 05-13 17:15: 14 05-13 00:00 :00 No Take by mouth. [facility] calcium carbonate/v itamin D3 (VITAMIN D-3 ORAL) 05-13 15:58: 26 Yes Take by mouth. [facility] PNV no.95/domingo us fum/folic ac ( ORAL) 04-09 10:42: 01 Yes Take by mouth. [facility] pyridoxine, VITAMIN B-6, (VITAMIN B-6) 25 mg tablet 04-09 00:00: 00 09-09 00:00 :00 No [id number] 25mg Take 1 tablet by mouth every 6 (six) hours as needed for Nausea and Vomiting (N/V). [facility] doxylamine (UNISOM, DOXYLAMINE, ) 25 mg tablet 04-09 00:00: 00 09-09 00:00 :00 No [id number] 25mg Take 1 tablet by mouth at bedtime as needed for Nausea and Vomiting (N/V). [facility] metoclopram sergio HCl 10 mg tablet 04-09 00:00: 00 09-09 00:00 :00 No [id number] 10mg Take 1 tablet by mouth every 6 (six) hours as needed for Nausea and Vomiting (N/V). [facility] etonogestre L (NEXPLANON) implant 68 mg 03-08 17:05: 03-08 17:09 :00 No [id number] 68mg [facility] L-Norgest&E Estradiol-E Estrad (ASHLYNA) 0.15 mg-30 mcg (84)/10 mcg (7) per tablet 02-27 00:00: 00 03-08 00:00 :00 No [id number] 1{tbl} Take 1 tablet by mouth daily. [facility] albuterol 90 mcg/actuati on inhaler 01-05 00:00: 00 03-17 00:00 :00 No [id number] 2{puff} Inhale 2 Puffs every 4 (four) hours as needed for Wheezing or Shortness of Breath. [facility] benzonatate 100 mg capsule 01-05 00:00: 00 11-01 00:00 :00 No [id number] 100mg Take 1 capsule by mouth 3 (three) times daily as needed for Cough. [facility] ondansetron (ZOFRAN ODT) 4 mg disintegrat ing tablet 2020- 326 00:00: 00 11-01 00:00 :00 No [id number] 4mg Take 1 tablet by mouth every 8 (eight) hours as needed for Nausea and Vomiting (N/V). [facility] Amgrayia Amethia 2017- 1- 00:00: 00 Yes Zac Martínezkatkenton 1 tablet [facility] Simpesse 0.15 mg-30 mcg (84)/10 mcg(7) tablets,3 month dose pack TAKE 1 TABLET BY MOUTH DAILY Simpesse 0.15 mg-30 mcg (84)/10 mcg(7) tablets,3 month dose pack TAKE 1 TABLET BY MOUTH DAILY No Simpesse 0.15 mg-30 mcg (84)/10 mcg(7) tablets,3 month dose pack TAKE 1 TABLET BY MOUTH DAILY [facility] Immunizations Ordered Immunization Name Filled Immunization Name Date Status Comments Source TDAP 2023-08-11 00:00:00 Completed Influenza Virus Vaccine Quad .5 mL IM 6+ MO (FLUZONE/FLULAVAL/F LUARIX) 2020-07-17 00:00:00 Completed [facility] TDAP 2020-07-17 00:00:00 Completed Influenza Virus Vaccine Quad .5 mL IM 6+ MO 2020-07-17 00:00:00 Completed [facility] TDAP 2020-07-17 00:00:00 Completed [facility] Influenza Virus Vaccine Quad .5 mL IM 6+ MO 2020-07-17 00:00:00 Completed [facility] TDAP 2020-07-17 00:00:00 Completed [facility] Influenza Virus Vaccine Quad .5 mL IM 6+ MO 2020-07-17 00:00:00 Completed [facility] TDAP 2020-07-17 00:00:00 Completed [facility] Influenza Virus Vaccine Quad .5 mL IM 6+ MO 2020-07-17 00:00:00 Completed [facility] TDAP 2020-07-17 00:00:00 Completed [facility] Influenza Virus Vaccine Quad .5 mL IM 6+ MO 2020-07-17 00:00:00 Completed [facility] TDAP 2020-07-17 00:00:00 Completed [facility] Influenza Virus Vaccine Quad .5 mL IM 6+ MO 2020-07-17 00:00:00 Completed [facility] TDAP 2020-07-17 00:00:00 Completed [facility] Influenza Virus Vaccine Quad .5 mL IM 6+ MO 2020-07-17 00:00:00 Completed [facility] TDAP 2020-07-17 00:00:00 Completed [facility] Influenza Virus Vaccine Quad .5 mL IM 6+ MO 2020-07-17 00:00:00 Completed [facility] TDAP 2020-07-17 00:00:00 Completed [facility] Influenza Virus Vaccine Quad .5 mL IM 6+ MO 2020-07-17 00:00:00 Completed [facility] TDAP 2020-07-17 00:00:00 Completed [facility] Influenza Virus Vaccine Quad .5 mL IM 6+ MO 2020-07-17 00:00:00 Completed [facility] TDAP 2020-07-17 00:00:00 Completed [facility] Influenza Virus Vaccine Quad .5 mL IM 6+ MO 2020-07-17 00:00:00 Completed [facility] TDAP 2020-07-17 00:00:00 Completed [facility] Influenza Virus Vaccine Quad .5 mL IM 6+ MO 2020-07-17 00:00:00 Completed [facility] TDAP 2020-07-17 00:00:00 Completed [facility] Influenza Virus Vaccine Quad .5 mL IM 6+ MO 2020-07-17 00:00:00 Completed [facility] TDAP 2020-07-17 00:00:00 Completed [facility] Influenza Virus Vaccine Quad .5 mL IM 6+ MO 2020-07-17 00:00:00 Completed [facility] TDAP 2020-07-17 00:00:00 Completed [facility] Influenza Virus Vaccine Quad .5 mL IM 6+ MO 2020-07-17 00:00:00 Completed [facility] TDAP 2020-07-17 00:00:00 Completed [facility] Influenza Virus Vaccine Quad .5 mL IM 6+ MO 2020-07-17 00:00:00 Completed [facility] TDAP 2020-07-17 00:00:00 Completed [facility] Influenza Virus Vaccine Quad .5 mL IM 6+ MO 2020-07-17 00:00:00 Completed [facility] TDAP 2020-07-17 00:00:00 Completed [facility] Influenza Virus Vaccine Quad .5 mL IM 6+ MO 2020-07-17 00:00:00 Completed [facility] TDAP 2020-07-17 00:00:00 Completed [facility] Influenza Virus Vaccine Quad .5 mL IM 6+ MO 2020-07-17 00:00:00 Completed [facility] TDAP 2020-07-17 00:00:00 Completed [facility] Influenza Virus Vaccine Quad .5 mL IM 6+ MO (FLUZONE/FLULAVAL/F LUARIX) 2020-07-17 00:00:00 Completed [facility] TDAP 2020-07-17 00:00:00 Completed [facility] Influenza Virus Vaccine 2019-08-30 00:00:00 Completed [facility] Influenza Virus Vaccine 2019-08-30 00:00:00 Completed [facility] Influenza Virus Vaccine 2019-08-30 00:00:00 Completed [facility] Influenza Virus Vaccine 2019-08-30 00:00:00 Completed [facility] Influenza Virus Vaccine 2019-08-30 00:00:00 Completed [facility] Influenza Virus Vaccine 2019-08-30 00:00:00 Completed [facility] Influenza Virus Vaccine 2019-08-30 00:00:00 Completed [facility] Influenza Virus Vaccine 2019-08-30 00:00:00 Completed [facility] Influenza Virus Vaccine 2019-08-30 00:00:00 Completed [facility] Influenza Virus Vaccine 2019-08-30 00:00:00 Completed [facility] Influenza Virus Vaccine 2019-08-30 00:00:00 Completed [facility] Influenza Virus Vaccine 2019-08-30 00:00:00 Completed [facility] Influenza Virus Vaccine 2019-08-30 00:00:00 Completed [facility] Influenza Virus Vaccine 2019-08-30 00:00:00 Completed [facility] Influenza Virus Vaccine 2019-08-30 00:00:00 Completed [facility] Influenza Virus Vaccine 2019-08-30 00:00:00 Completed [facility] Influenza Virus Vaccine 2019-08-30 00:00:00 Completed [facility] Influenza Virus Vaccine 2019-08-30 00:00:00 Completed [facility] Influenza Virus Vaccine 2019-08-30 00:00:00 Completed [facility] Influenza Virus Vaccine 2019-08-30 00:00:00 Completed [facility] Influenza Virus Vaccine 2019-08-30 00:00:00 Completed [facility] Afluria Afluria 2018-07-16 00:00:00 Completed [facility] TDAP > 7 Years-Adacel TDAP > 7 Years-Adacel 2018-06-12 00:00:00 Completed [facility] Influenza Virus Vaccine Quad .5 mL IM 6+ MO (FLUZONE/FLULAVAL/F LUARIX) Unknown Completed [facility] TDAP Unknown Completed [facility] Influenza Virus Vaccine Unknown Completed [facility] Influenza Virus Vaccine Quad .5 mL IM 6+ MO (FLUZONE/FLULAVAL/F LUARIX) Unknown Completed [facility] TDAP Unknown Completed [facility] Influenza Virus Vaccine Unknown Completed [facility] Influenza Virus Vaccine Quad .5 mL IM 6+ MO (FLUZONE/FLULAVAL/F LUARIX) Unknown Completed [facility] TDAP Unknown Completed [facility] Influenza Virus Vaccine Unknown Completed [facility] Influenza Virus Vaccine Quad .5 mL IM 6+ MO (FLUZONE/FLULAVAL/F LUARIX) Unknown Completed [facility] TDAP Unknown Completed [facility] Influenza Virus Vaccine Unknown Completed [facility] Influenza Virus Vaccine Quad .5 mL IM 6+ MO (FLUZONE/FLULAVAL/F LUARIX) Unknown Completed [facility] TDAP Unknown Completed [facility] Influenza Virus Vaccine Unknown Completed [facility] Influenza Virus Vaccine Quad .5 mL IM 6+ MO (FLUZONE/FLULAVAL/F LUARIX) Unknown Completed [facility] TDAP Unknown Completed [facility] Influenza Virus Vaccine Unknown Completed [facility] Influenza Virus Vaccine Quad .5 mL IM 6+ MO (FLUZONE/FLULAVAL/F LUARIX) Unknown Completed [facility] TDAP Unknown Completed [facility] Influenza Virus Vaccine Unknown Completed [facility] Influenza Virus Vaccine Quad .5 mL IM 6+ MO (FLUZONE/FLULAVAL/F LUARIX) Unknown Completed [facility] TDAP Unknown Completed [facility] Influenza Virus Vaccine Unknown Completed [facility] Influenza Virus Vaccine Quad .5 mL IM 6+ MO (FLUZONE/FLULAVAL/F LUARIX) Unknown Completed [facility] TDAP Unknown Completed [facility] Influenza Virus Vaccine Unknown Completed [facility] Influenza Virus Vaccine Quad .5 mL IM 6+ MO (FLUZONE/FLULAVAL/F LUARIX) Unknown Completed [facility] TDAP Unknown Completed [facility] Influenza Virus Vaccine Unknown Completed [facility] Influenza Virus Vaccine Quad .5 mL IM 6+ MO (FLUZONE/FLULAVAL/F LUARIX) Unknown Completed [facility] TDAP Unknown Completed [facility] Influenza Virus Vaccine Unknown Completed [facility] Influenza Virus Vaccine Quad .5 mL IM 6+ MO (FLUZONE/FLULAVAL/F LUARIX) Unknown Completed [facility] TDAP Unknown Completed [facility] Influenza Virus Vaccine Unknown Completed [facility] Influenza Virus Vaccine Quad .5 mL IM 6+ MO (FLUZONE/FLULAVAL/F LUARIX) Unknown Completed [facility] TDAP Unknown Completed [facility] Influenza Virus Vaccine Unknown Completed [facility] Influenza Virus Vaccine Quad .5 mL IM 6+ MO (FLUZONE/FLULAVAL/F LUARIX) Unknown Completed [facility] TDAP Unknown Completed [facility] Influenza Virus Vaccine Unknown Completed [facility] Influenza Virus Vaccine Quad .5 mL IM 6+ MO (FLUZONE/FLULAVAL/F LUARIX) Unknown Completed [facility] TDAP Unknown Completed [facility] Influenza Virus Vaccine Unknown Completed [facility] Influenza Virus Vaccine Quad .5 mL IM 6+ MO (FLUZONE/FLULAVAL/F LUARIX) Unknown Completed [facility] TDAP Unknown Completed [facility] Influenza Virus Vaccine Unknown Completed [facility] Influenza Virus Vaccine Quad .5 mL IM 6+ MO (FLUZONE/FLULAVAL/F LUARIX) Unknown Completed [facility] TDAP Unknown Completed [facility] Influenza Virus Vaccine Unknown Completed [facility] Influenza Virus Vaccine Quad .5 mL IM 6+ MO (FLUZONE/FLULAVAL/F LUARIX) Unknown Completed [facility] TDAP Unknown Completed [facility] Influenza Virus Vaccine Unknown Completed [facility] Influenza Virus Vaccine Quad .5 mL IM 6+ MO (FLUZONE/FLULAVAL/F LUARIX) Unknown Completed [facility] TDAP Unknown Completed [facility] Influenza Virus Vaccine Unknown Completed [facility] Vital Signs Vital Name Observation Time Observation Value Comments S ource Systolic blood pressure 2025-01-25 13:38:00 124 mm[Hg] [facility] Diastolic blood pressure 2025-01-25 13:38:00 81 mm[Hg] [facility] Heart rate 2025-01-25 13:38:00 88 /min [facility] Body temperature 2025-01-25 13:38:00 36.89 Renetta [facility] Respiratory rate 2025-01-25 13:38:00 16 /min [facility] Body height 2025-01-25 13:38:00 157.5 cm [facility] Body weight 2025-01-25 13:38:00 59.557 kg [facility] BMI 2025-01-25 13:38:00 24.02 kg/m2 [facility] Oxygen saturation in Arterial blood by Pulse oximetry 2025-01-25 13:38:00 100 /min [facility] Systolic blood pressure 2024-03-17 20:22:00 119 mm[Hg] [facility] Diastolic blood pressure 2024-03-17 20:22:00 79 mm[Hg] [facility] Heart rate 2024-03-17 20:22:00 78 /min [facility] Body temperature 2024-03-17 20:22:00 36.78 Renetta [facility] Body height 2024-03-17 20:22:00 160 cm [facility] Body weight 2024-03-17 20:22:00 61.145 kg [facility] BMI 2024-03-17 20:22:00 23.88 kg/m2 [facility] Systolic blood pressure 2023-11-20 21:34:00 103 mm[Hg] [facility] Diastolic blood pressure 2023-11-20 21:34:00 69 mm[Hg] [facility] Heart rate 2023-11-20 21:34:00 78 /min [facility] Body temperature 2023-11-20 21:34:00 36.17 Renetta [facility] Respiratory rate 2023-11-20 21:34:00 18 /min [facility] Body height 2023-11-20 21:34:00 160 cm [facility] Body weight 2023-11-20 21:34:00 60.601 kg [facility] BMI 2023-11-20 21:34:00 23.67 kg/m2 [facility] Oxygen saturation in Arterial blood by Pulse oximetry 2023-11-20 21:34:00 97 /min [facility] Systolic blood pressure 2023-10-21 17:45:00 103 mm[Hg] [facility] Diastolic blood pressure 2023-10-21 17:45:00 66 mm[Hg] [facility] Heart rate 2023-10-21 17:45:00 77 /min [facility] Body temperature 2023-10-21 17:45:00 36.56 Reentta [facility] Respiratory rate 2023-10-21 17:45:00 17 /min [facility] Oxygen saturation in Arterial blood by Pulse oximetry 2023-10-21 17:45:00 99 /min [facility] Body height 2023-10-20 10:25:00 160 cm [facility] Body weight 2023-10-20 10:25:00 70.398 kg [facility] BMI 2023-10-20 10:25:00 27.49 kg/m2 [facility] Systolic blood pressure 2023-10-15 21:28:00 103 mm[Hg] [facility] Diastolic blood pressure 2023-10-15 21:28:00 65 mm[Hg] [facility] Heart rate 2023-10-15 21:28:00 77 /min [facility] Body height 2023-10-15 21:28:00 157.5 cm [facility] Body weight 2023-10-15 21:28:00 69.854 kg [facility] BMI 2023-10-15 21:28:00 28.17 kg/m2 [facility] Systolic blood pressure 2023-10-08 21:38:00 101 mm[Hg] [facility] Diastolic blood pressure 2023-10-08 21:38:00 63 mm[Hg] [facility] Heart rate 2023-10-08 21:38:00 81 /min [facility] Body temperature 2023-10-08 21:38:00 36.56 Renetta [facility] Respiratory rate 2023-10-08 21:38:00 18 /min [facility] Body height 2023-10-08 21:38:00 157.5 cm [facility] Body weight 2023-10-08 21:38:00 69.854 kg [facility] BMI 2023-10-08 21:38:00 28.17 kg/m2 [facility] Oxygen saturation in Arterial blood by Pulse oximetry 2023-10-08 21:38:00 98 /min [facility] Systolic blood pressure 2023-09-22 18:53:00 122 mm[Hg] [facility] Diastolic blood pressure 2023-09-22 18:53:00 71 mm[Hg] [facility] Heart rate 2023-09-22 18:53:00 98 [facility] Body temperature 2023-09-22 18:53:00 36.72 Renetta [facility] Respiratory rate 2023-09-22 18:53:00 18 /min [facility] Body height 2023-09-22 18:53:00 157.5 cm [facility] Body weight 2023-09-22 18:53:00 69.219 kg [facility] BMI 2023-09-22 18:53:00 27.91 kg/m2 [facility] Heart rate 2023-09-21 19:45:00 81 /min [facility] in Arterial blood by Pulse oximetry 2023-09-21 19:45:00 96 /min [facility] Systolic blood pressure 2023-09-21 18:00:00 103 mm[Hg] [facility] Diastolic blood pressure 2023-09-21 18:00:00 63 mm[Hg] [facility] Body temperature 2023-09-21 18:00:00 36.22 Renetta [facility] Respiratory rate 2023-09-21 17:41:00 18 /min [facility] Body height 2023-09-21 17:41:00 157.5 cm [facility] Body weight 2023-09-21 17:41:00 68.04 kg [facility] BMI 2023-09-21 17:41:00 27.44 kg/m2 [facility] Heart rate 2023-09-17 16:35:00 107 /min [facility] Oxygen saturation in Arterial blood by Pulse oximetry 2023-09-17 16:35:00 99 /min [facility] Systolic blood pressure 2023-09-17 14:30:00 115 mm[Hg] [facility] Diastolic blood pressure 2023-09-17 14:30:00 68 mm[Hg] [facility] Body temperature 2023-09-17 13:54:00 36.78 Renetta [facility] Respiratory rate 2023-09-17 13:54:00 12 /min [facility] Body height 2023-09-15 01:20:00 157.5 cm [facility] Body weight 2023-09-15 01:20:00 68.947 kg [facility] BMI 2023-09-15 01:20:00 27.80 kg/m2 [facility] Systolic blood pressure 2023-09-09 21:53:00 105 mm[Hg] [facility] Diastolic blood pressure 2023-09-09 21:53:00 68 mm[Hg] [facility] Heart rate 2023-09-09 21:53:00 87 /min [facility] Body temperature 2023-09-09 21:53:00 36.56 Renetta [facility] Body height 2023-09-09 21:53:00 160 cm [facility] Body weight 2023-09-09 21:53:00 69.854 kg [facility] BMI 2023-09-09 21:53:00 27.28 kg/m2 [facility] Systolic blood pressure 2023-08-11 16:31:00 102 mm[Hg] [facility] Diastolic blood pressure 2023-08-11 16:31:00 68 mm[Hg] [facility] Heart rate 2023-08-11 16:31:00 82 /min [facility] Body temperature 2023-08-11 16:31:00 36.33 Renetta [facility] Respiratory rate 2023-08-11 16:31:00 18 /min [facility] Body height 2023-08-11 16:31:00 160 cm [facility] Body weight 2023-08-11 16:31:00 66.86 kg [facility] BMI 2023-08-11 16:31:00 26.11 kg/m2 [facility] Oxygen saturation in Arterial blood by Pulse oximetry 2023-08-11 16:31:00 99 /min [facility] Systolic blood pressure 2023-07-14 18:07:00 99 mm[Hg] [facility] Diastolic blood pressure 2023-07-14 18:07:00 64 mm[Hg] [facility] Heart rate 2023-07-14 18:07:00 87 /min [facility] Body temperature 2023-07-14 18:07:00 36.61 Renetta [facility] Respiratory rate 2023-07-14 18:07:00 17 /min [facility] Body height 2023-07-14 18:07:00 160 cm [facility] Body weight 2023-07-14 18:07:00 64.229 kg [facility] BMI 2023-07-14 18:07:00 25.08 kg/m2 [facility] Heart rate 2023-07-11 00:45:00 84 /[facility] Oxygen saturation in Arterial blood by Pulse oximetry 2023-07-11 00:45:00 99 /min [facility] Systolic blood pressure 2023-07-11 00:30:00 108 mm[Hg] [facility] Diastolic blood pressure 2023-07-11 00:30:00 66 mm[Hg] [facility] Body temperature 2023-07-10 23:15:00 36.83 Renetta [facility] Respiratory rate 2023-07-10 23:15:00 18 /min [facility] Body height 2023-07-10 22:56:00 160 cm [facility] Body weight 2023-07-10 22:56:00 64.365 kg [facility] BMI 2023-07-10 22:56:00 25.14 kg/m2 [facility] Systolic blood pressure 2023-06-11 17:54:00 92 mm[Hg] [facility] Diastolic blood pressure 2023-06-11 17:54:00 61 mm[Hg] [facility] Heart rate 2023-06-11 17:54:00 76 /min [facility] Body temperature 2023-06-11 17:54:00 36.67 Renetta [facility] Respiratory rate 2023-06-11 17:54:00 18 /min [facility] Body height 2023-06-11 17:54:00 160 cm [facility] Body weight 2023-06-11 17:54:00 60.51 kg [facility] BMI 2023-06-11 17:54:00 23.63 kg/m2 [facility] Systolic blood pressure 2023-05-13 20:56:00 107 mm[Hg] [facility] Diastolic blood pressure 2023-05-13 20:56:00 72 mm[Hg] [facility] Heart rate 2023-05-13 20:56:00 89 /min [facility] Body temperature 2023-05-13 20:56:00 36.78 Renetta [facility] Body height 2023-05-13 20:56:00 160 cm [facility] Body weight 2023-05-13 20:56:00 58.877 kg [facility] BMI 2023-05-13 20:56:00 22.99 kg/m2 [facility] Systolic blood pressure 2023-04-09 14:58:00 95 mm[Hg] [facility] Diastolic blood pressure 2023-04-09 14:58:00 69 mm[Hg] [facility] Heart rate 2023-04-09 14:58:00 78 /min [facility] Body temperature 2023-04-09 14:58:00 36.44 Renetta [facility] Respiratory rate 2023-04-09 14:58:00 18 /min [facility] Body height 2023-04-09 14:58:00 160 cm [facility] Body weight 2023-04-09 14:58:00 57.425 kg [facility] BMI 2023-04-09 14:58:00 22.43 kg/m2 [facility] Systolic blood pressure 2022-11-01 14:52:00 111 mm[Hg] [facility] Diastolic blood pressure 2022-11-01 14:52:00 77 mm[Hg] [facility] Heart rate 2022-11-01 14:52:00 76 /min [facility] Body temperature 2022-11-01 14:52:00 36.72 Renetta [facility] Body height 2022-11-01 14:52:00 157.5 cm [facility] Body weight 2022-11-01 14:52:00 59.149 kg [facility] BMI 2022-11-01 14:52:00 23.85 kg/m2 [facility] Systolic blood pressure 2022-10-15 15:00:00 115 mm[Hg] [facility] Diastolic blood pressure 2022-10-15 15:00:00 78 mm[Hg] [facility] Heart rate 2022-10-15 15:00:00 88 [facility] 2022-10-15 15:00:00 36.67 Renetta [facility] Respiratory rate 2022-10-15 15:00:00 18 /min [facility] Body height 2022-10-15 15:00:00 157.5 cm [facility] Body weight 2022-10-15 15:00:00 58.423 kg [facility] BMI 2022-10-15 15:00:00 23.56 kg/m2 [facility] Systolic blood pressure 2022-03-08 16:43:00 124 mm[Hg] [facility] Diastolic blood pressure 2022-03-08 16:43:00 81 mm[Hg] [facility] Heart rate 2022-03-08 16:43:00 84 /min [facility] Respiratory rate 2022-03-08 16:43:00 18 /min [facility] Body height 2022-03-08 16:43:00 157.5 cm [facility] Body weight 2022-03-08 16:43:00 56.728 kg [facility] BMI 2022-03-08 16:43:00 22.87 kg/m2 [facility] Oxygen saturation in Arterial blood by Pulse oximetry 2022-03-08 16:43:00 96 /min [facility] BP Diastolic 2021-12-27 00:00:00 66 mm[Hg] [facility] Height 2021-12-27 00:00:00 62.5 [in_i] [facility] BMI (Body Mass Index) 2021-12-27 00:00:00 22.5 kg/m2 [facility] BP Systolic 2021-12-27 00:00:00 117 mm[Hg] [facility] Body Weight 2021-12-27 00:00:00 1996.8 [oz_av] [facility] Procedures Procedure Date / Time Performed Performing Clinician Source POCT TEST 2025-01-25 13:50:00 Dafne Osei [facility] CBC WITH DIFF 2023-10-21 10:04:00 [facility]h [facility] CENTRAL NEURAXIAL BLOCK 2023-10-20 13:03:00 Kristie Burns [facility] CBC WITH DIFF 2023-10-20 10:55:00 Binh [facility] HEPATITIS B SURFACE ANTIGEN 2023-10-20 10:55:00 Binh Robbins [facility] HB ABO GROUPING 2023-10-20 10:55:00 Binh Robbins [facility] RHO (D) IMMUNE GLOBULIN 2023-10-20 10:55:00 Binh Robbins [facility] ADC OR RAMSO ONLY - RPR 2023-10-20 10:55:00 Maryjo Robbins [facility] HIV 1/2 AG-AB WITH REFLEX 2023-10-20 10:55:00 Maryjo Robbins [facility] NOTICE OF PRIVACY PRACTICES 2023-10-15 21:57:59 Doctor Unassigned, [place] [facility] CONSENT/REFUSAL FOR DIAGNOSIS AND TREATMENT 2023-10-15 21:57:42 Doctor Unassigned, [place] [facility] ASSIGNMENT OF BENEFITS 2023-10-15 21:57:10 Docto r Unassigned, [place] [facility] POCT URINALYSIS W/O SPECIFIC GRAVITY 2023-10-15 00:00:00 Binh Robbins [facility] >14 WEEKS US LIMITED 2023-10-09 05:54:54 Binh Robbins [facility] DSU PRE-OP 2023-10-08 06:01:00 Doctor Unass igned, [place] [facility] POCT URINALYSIS W/O SPECIFIC GRAVITY 2023-10-08 00:00:00 Binh Robbins [facility] NON-STRESS TEST 2023-09-22 19:30:26 Binh Robbins [facility] POCT URINALYSIS W/O SPECIFIC GRAVITY 2023-09-22 19:03:00 Robbins, [facility] ADC ONLY - FERN TEST 2023-09-21 18:40:00 Merly Figueroa [facility] ASSIGNMENT OF BENEFITS 2023-09-21 17:35:52 Docto r Unassigned, [place] [facility] CONSENT/REFUSAL FOR DIAGNOSIS AND TREATMENT 2023-09-21 17:33:59 Doctor Unassigned, [place] [facility] BIOPHYSICAL PROFILE 2023-09-17 15:30:00 Itzel [facility] BASIC METABOLIC PANEL (NA, K, CL, CO2, GLUCOSE, BUN, CREATININE, CA) 2023-09-16 15:59:00 Itzel [facility] BASIC METABOLIC PANEL (NA, K, CL, CO2, GLUCOSE, BUN, CREATININE, CA) 2023-09-15 20:43:00 Itzel [facility] ADC CLC OR LCC ONLY - WET PREP 2023-09-15 16:30:00 Itzel [facility] GC & CHLAMYDIA AMPLIFIED ASSAY 2023-09-15 16:30:00 Itzel [facility] GROUP B STREPTOCOCCUS BY PCR 2023-09-15 16:30:00 Itzel [facility] BIOPHYSICAL PROFILE 2023-09-15 16:27:17 Itzel [facility] US PELVIS > 14 WEEKS 2023-09-15 16:27:03 Itzel [facility] AMYLASE 2023-09-15 02:17:00 Itzel Binh [facility] LIPASE 2023-09-15 02:17:00 Itzel [facility] COMP. METABOLIC PANEL (13679) 2023-09-15 02:17:00 Itzel [facility] CBC WITH DIFF 2023-09-15 02:17:00 Robbins [facility] URINALYSIS 2023-09-15 02:17:00 Itzel [facility] URINE CULTURE 2023-09-15 02:17:00 Itzel [facility] ASSIGNMENT OF BENEFITS 2023-09-15 01:18:58 Docto r Unassigned, Gilbert [facility] CONSENT/REFUSAL FOR DIAGNOSIS AND TREATMENT 2023-09-15 01:18:30 Doctor Unassigned, Gilbert [facility] POCT URINALYSIS W/O SPECIFIC GRAVITY 2023-09-09 00:00:00 Binh Robbins [facility] TDAP VACCINE, >11 YRS, IM 2023-08-11 16:39:35 Maryjo Robbins [facility] POCT URINALYSIS W/O SPECIFIC GRAVITY 2023-08-11 00:00:00 Binh Robbins [facility] POCT URINALYSIS W/O SPECIFIC GRAVITY 2023-07-14 00:00:00 Binh Robbins [facility] URINALYSIS 2023-07-10 23:36:00 Binh Robbins [facility] ADC CLC OR LCC ONLY - WET PREP 2023-07-10 23:36:00 Binh Robbins [facility] ASSIGNMENT OF BENEFITS 2023-07-10 22:46:39 Docto r Unassigned, Gilbert [facility] CONSENT/REFUSAL FOR DIAGNOSIS AND TREATMENT 2023-07-10 22:40:25 Doctor Unassigned, Gilbert [facility] SECOND AND THIRD TRIMESTER ULTRASOUND 2023-06-23 19:38:00 Binh Robbins [facility] POCT URINALYSIS W/O SPECIFIC GRAVITY 2023-06-11 00:00:00 Binh Robbins [facility] INSURANCE CORRESPONDENCE 2023-05-20 05:01:00 Doc tor Unassigned, Gilbert [facility] POCT URINALYSIS W/O SPECIFIC GRAVITY 2023-05-13 00:00:00 Binh Robbins [facility] GLUCOSE 1 HOUR POST PRANDIAL 2023-04-09 16:57:00 Binh Robbins [facility] CBC WITH DIFF 2023-04-09 16:57:00 [facility] ANTIGEN 2023-04-09 16:57:00 Binh Robbins [facility] HB ABO GROUPING 2023-04-09 16:57:00 Robbins, Binh [facility] HIV 1/2 AG-AB WITH REFLEX 2023-04-09 16:57:00 Itzel Eldregenoveva eduardo Temple [facility] <14 WEEKS US LIMITED 2023-04-09 15:50:30 Binh Robbins [facility] ASSIGNMENT OF BENEFITS 2023-04-09 14:42:29 Docto r Unassigned, Gilbert [facility] SCANNED LAB RESULTS 2023-04-09 05:01:00 Doctor Iris baltazar, [facility] ULTR[facility] 2023-04-09 05:01:00 Doc tor Unassigned, Gilbert [facility] POCT TEST 2023-04-09 00:00:00 Itzel Binh Temple [facility] POCT TEST 2022-03-08 16:44:00 Stephen Marcus [facility] CONSENT FOR CONTRACEPTION 2022-03-08 05:01:00 Do ctor Unassigned, [facility] DISCLOSURE AND CONSENT, MEDICAL AND SURGICAL PROCEDURES 2021-10-15 06:01:00 Doctor Unassigned, Gilbert [facility] Plan of Care Planned Activity Planned Date Details Comments Source Diagnostic Test Pending 2021-12-27 00:00:00 rapid influenza virus A + B and SARS CoV + SARS CoV 2 Ag panel, IA, upper respiratory specimen [code = rapid influenza virus A + B and SARS CoV + SARS CoV 2 Ag panel, IA, upper respiratory specimen] [facility] Diagnostic Test Pending 2021-12-27 00:00:00 rapid strep group A, throat [code = rapid strep group A, throat] [facility] Instructions [facility] Clinics Encounters Start Date/Time End Date/Time Encounter Type Admission Type Attending Clinicians Care Facility Care Department Encounter ID Source 2023-10-15 15:45:41 Outpatient P BINH ROBBINS [facility] [id number] [facility] 2023-07-10 21:07:01 Outpatient P [facility] [id number] [facility] 2022-11-06 12:13:57 Outpatient R BINH ROBBINS [facility] 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 [id number] [facility] 2021-08-12 08:54:33 Emergency [facility] [id number] [facility] 2021-08-11 12:36:26 Outpatient P [facility] [id number] [facility] 2021-08-11 12:27:40 Outpatient P [facility] [id number] [facility] 2021-08-10 00:53:06 Emergency [facility] [id number] [facility] 2025-01-25 08:39:00 2025-01-25 10:02:00 Emergency X DAFNE OSEI [facility] ERT [id number] [facility] 2025-01-25 08:39:00 2025-01-25 10:02:00 Emergency Dafne Osei [facility] 1.840.114 350.1.13.10 4.2.7.2.686 [id number] [facility] 2023-04-09 00:00:00 2024-11-27 02:40:31 Orders Only Lis Parry Chelsea N [facility] PROFESSIO [facility] 1..114 350.1.13.10 4.2.7.2.686 [id number] [facility] 2024-06-17 15:30:00 2024-06-17 15:30:00 Outpatient R BINH ROBBINS [facility] [id number] [facility] 2024-03-18 00:00:00 2024-04-24 18:25:17 Patient Secure Msg Doctor Unassigned, Gilbert [facility] 1.840.114 350.1.13.10 4.2.7.2.686 [id number] [facility] 2024-03-17 15:30:00 2024-03-17 15:46:37 Outpatient BINH ADAME [facility] [id number] [facility] 2024-03-17 15:30:00 2024-03-17 15:46:37 Office Visit Binh Robbins [facility] 1.2.840.114 350.1.13.10 4.2.7.2.686 [id number] [facility] 2024-01-05 15:30:00 2024-01-05 15:30:00 Outpatient R BINH ROBBINS [facility] [id number] [facility] 2023-11-20 15:30:00 2023-11-20 15:45:41 Outpatient R ITZEL [facility] [id number] [facility] 2023-11-20 15:30:00 2023-11-20 15:45:41 Routine Visit Binh Robbins [facility] 1.2.840.114 350.1.13.10 4.2.7.2.686 [id number] [facility] 2023-10-20 04:12:00 2023-10-21 16:40:00 Inpatient P ITZEL BINH [facility] [id number] [facility] 2023-10-20 04:12:00 2023-10-21 16:40:00 Hospital Encounter Binh Robbins [facility] 1.2.840.114 350.1.13.10 4.2.7.2.686 [id number] [facility] 2023-10-20 07:05:00 2023-10-20 14:46:00 Anesthesia Event Jessica Jeong John M [facility] 1.2.840.114 350.1.13.10 4.2.7.2.686 [id number] [facility] 2023-10-15 15:15:00 2023-10-15 15:41:24 Outpatient R BINH ROBBINS [facility] [id number] [facility] 2023-10-15 15:15:00 2023-10-15 15:41:24 Routine Visit Binh Robbins [facility] 1.2.840.114 350.1.13.10 4.2.7.2.686 [id number] 134 [id number] [facility] 2023-10-08 15:30:00 2023-10-08 16:14:58 Outpatient R BINH ROBBINS [facility] [id number] [facility] 2023-10-08 15:30:00 2023-10-08 16:14:58 Routine Visit Binh Robbins [facility] 1.2.840.114 350.1.13.10 4.2.7.2.686 [id number] [facility] 2023-10-08 00:00:00 2023-10-08 00:00:00 Orders Only Doctor Unassigned, Gilbert [facility] 1..840.114 350.1.13.10 4.2.7.2.686 [id number] [facility] 2023-09-23 15:45:00 2023-09-23 15:45:00 [id number] 2023-09-22 13:00:00 2023-09-22 13:25:17 Outpatient R BINH ROBBINS [facility] [id number] [facility] 2023-09-22 13:00:00 2023-09-22 13:25:17 Routine Visit Room, [facility] Nst Binh Robbins [facility] 1..840.114 350.1.13.10 4.2.7.2.686 [id number] [facility] 2023-09-21 11:43:00 2023-09-21 13:55:00 Outpatient X MERLY BOSCHI S, [facility] [id number] [facility] 2023-09-21 11:43:00 2023-09-21 13:55:00 Emergency Merly Bosch [facility] 1.2.840.114 350.1.13.10 4.2.7.2.686 [id number] [facility] 2023-09-14 19:27:00 2023-09-17 11:15:00 Outpatient X BINH ROBBINS [facility] [id number] [facility] 2023-09-14 19:27:00 2023-09-17 11:15:00 Emergency Binh Robbins [facility] 1.2.840.114 350.1.13.10 4.2.7.2.686 [id number] [facility] 2023-09-09 16:00:00 2023-09-09 16:03:31 Outpatient R BINH ROBBINS [facility] [id number] [facility] 2023-09-09 16:00:00 2023-09-09 16:03:31 Routine Visit Binh Robbins [facility] 1.2.840.114 350.1.13.10 4.2.7.2.686 [id number] 134 [id number] [facility] 2023-08-25 16:00:00 2023-08-25 16:00:00 Outpatient R BINH ROBBINS [facility] [id number] [facility] 2023-08-14 00:00:00 2023-08-14 00:00:00 Telephone Binh Robbins [facility] 1.2.840.114 350.1.13.10 4.2.7.2.686 [id number] [facility] 2023-08-11 11:15:00 2023-08-11 11:48:06 Outpatient R BINH ROBBINS [facility] [id number] [facility] 2023-08-11 11:15:00 2023-08-11 11:48:06 [facility] 1..840.114 350.1.13.10 4.2.7.2.686 [id number] [facility] 2023-08-10 00:00:00 2023-08-10 00:00:00 Outpatient GC_GCBZW_Ka diyala_S PRIV PRIV [id number] [facility] 2023-07-17 08:00:00 2023-07-17 09:06:59 Outpatient R BINH ROBBINS [facility] [id number] [facility] 2023-07-17 08:00:00 2023-07-17 08:15:00 Freight Checker Visit 2, Adc Lab Binh Robbins [facility] 1..840.114 350.1.13.10 4.2.7.2.686 [id number] [facility] 2023-07-14 13:15:00 2023-07-14 13:34:20 Outpatient R BINH ROBBINS [facility] [id number] [facility] 2023-07-14 13:15:00 2023-07-14 13:34:20 Rout[facility] 1..840.114 350.1.13.10 4.2.7.2.686 [id number] [facility] 2023-07-10 18:02:00 2023-07-10 20:00:00 Outpatient P BINH ROBBINS [facility] [id number] [facility] 2023-07-10 18:02:00 2023-07-10 20:00:00 Hospital Encounter Binh Robbins [facility] 1.2840.114 350.1.13.10 4.2.7.2.686 [id number] [facility] 2023-07-10 00:00:00 2023-07-10 00:00:00 Telephone Itzel Binh [facility] 1.20.114 350.1.13.10 4.2.7.2.686 [id number] [facility] 2023-07-10 00:00:00 2023-07-10 00:00:00 Orders Only Doctor Unassigned, Gilbert [facility] 1.0.114 350.1.13.10 4.2.7.2.686 [id number] [facility] 2023-07-09 15:30:00 2023-07-09 15:30:00 Outpatient R ITZEL [facility] [id number] [facility] 2023-06-23 14:00:00 2023-06-23 14:32:07 Outpatient P QUAN BARBOZA COREY [facility] [id number] [facility] 2023-06-23 14:00:00 2023-06-23 14:32:07 Freight Checker Visit Ultrasound, [facility] Quan Barboza [facility] 1..114 350.1.13.10 4.2.7.2.686 [id number] [facility] 2023-06-11 13:15:00 2023-06-11 13:17:13 Outpatient R ITZEL BINH [facility] [id number] [facility] 2023-06-11 13:15:00 2023-06-11 13:17:13 Routine Visit Binh Robbins [facility] 1.20.114 350.1.13.10 4.2.7.2.686 [id number] 134 [id number] [facility] 2023-05-20 00:00:00 2023-05-20 00:00:00 Orders Only Doctor Unassigned, Gilbert [facility] 1.2.840.114 350.1.13.10 4.2.7.2.686 [id number] [facility] 2023-05-13 16:30:00 2023-05-13 16:45:00 Freight Checker Visit Pob, Adc Lab Main Binh Robbins [facility] 1.2.840.114 350.1.13.10 4.2.7.2.686 [id number] [facility] 2023-05-13 16:30:00 2023-05-13 16:30:00 Outpatient R BINH ROBBINS [facility] [id number] [facility] 2023-05-13 16:00:00 2023-05-13 16:16:45 Routine Visit Binh Robbins [facility] 1.2.840.114 350.1.13.10 4.2.7.2.686 [id number] 134 [id number] [facility] 2023-04-21 00:00:00 2023-04-21 00:00:00 Telephone Binh Robbins [facility] 1.2.840.114 350.1.13.10 4.2.7.2.686 [id number] 134 [id number] [facility] 2023-04-17 00:00:00 2023-04-17 00:00:00 Telephone Binh Robbins [facility] 1.2.840.114 350.1.13.10 4.2.7.2.686 [id number] [facility] 2023-04-09 11:15:00 2023-04-09 13:07:18 Freight Checker Visit 2, Adc Lab Binh Robbins [facility] 1.2.840.114 350.1.13.10 4.2.7.2.686 [id number] [facility] 2023-04-09 10:00:00 2023-04-09 10:35:28 Outpatient R BINH ROBBINS [facility] [id number] [facility] 2023-04-09 10:00:00 2023-04-09 10:35:28 Initial Visit Binh Robbins [facility] 1.2.840.114 350.1.13.10 4.2.7.2.686 [id number] [facility] 2023-04-09 00:00:00 2023-04-09 00:00:00 Orders Only Doctor Unassigned, Gilbert [facility] 1.2.840.114 350.1.13.10 4.2.7.2.686 [id number] [facility] 2023-03-11 00:00:00 2023-03-11 00:00:00 Telephone Sharon Cleveland [facility] 1.2.840.114 350.1.13.10 4.2.7.2.686 [id number] [facility] 2023-03-05 00:00:00 2023-03-05 00:00:00 Telephone ItzelElderbrent Temple [facility] 1.2.840.114 350.1.13.10 4.2.7.2.686 [id number] 134 [id number] [facility] 2022-12-02 08:00:00 2022-12-02 08:00:00 Outpatient R BINH ROBBINS [facility] [id number] [facility] 2022-11-22 14:45:00 2022-11-22 14:45:00 Outpatient R BINH ROBBINS [facility] [id number] [facility] 2022-11-15 00:00:00 2022-11-15 00:00:00 Telephone Binh Robbins [facility] 1.2840.114 350.1.13.10 4.2.7.2.686 [id number] [facility] 2022-11-01 09:00:00 2022-11-01 09:18:40 Outpatient R ROBBINS BINH [facility] [id number] [facility] 2022-11-01 09:00:00 2022-11-01 09:18:40 Office Visit Binh Robbins [facility] 1.2.840.114 350.1.13.10 4.2.7.2.686 [id number] [facility] 2022-11-01 00:00:00 2022-11-01 00:00:00 Prep For Surgery Binh Robbins [facility] 1.2840.114 350.1.13.10 4.2.7.2.686 [id number] [facility] 2022-10-15 09:00:00 2022-10-15 09:19:20 Outpatient R SANDRITA MARCUS CHERYAL [facility] [id number] [facility] 2022-10-15 09:00:00 2022-10-15 09:19:20 Office Visit Jason [facility] 1.2840.114 350.1.13.10 4.2.7.2.686 [id number] [facility] 2022-05-30 00:00:00 2022-05-30 00:00:00 Telephone Jason [facility] 1.2840.114 350.1.13.10 4.2.7.2.686 [id number] [facility] 2022-03-08 11:30:00 2022-03-08 11:58:38 Outpatient R SANDRITA MARCUS CHERYAL [facility] [id number] [facility] 2022-03-08 11:30:00 2022-03-08 11:58:38 Office Visit Sandrita Marcus [facility] 1.2.840.114 350.1.13.10 4.2.7.2.686 [id number] [facility] 2022-03-08 00:00:00 2022-03-08 00:00:00 Orders Only Doctor Unassigned, Gilbert [facility] 1.2.840.114 350.1.13.10 4.2.7.2.686 [id number] [facility] 2022-02-26 16:00:00 2022-02-26 16:17:30 Office Visit Sandrita Marcus [facility] 1.2.840.114 350.1.13.10 4.2.7.2.686 [id number] [facility] 2022-02-26 16:00:00 2022-02-26 16:17:30 Outpatient R SANDRITA MARCUS CHERYAL [facility] [id number] [facility] 2022-02-26 16:00:00 2022-02-26 16:00:00 Outpatient R SANDRITA MARCUS CHERYAL [facility] [id number] [facility] 2022-02-26 00:00:00 2022-02-26 00:00:00 Orders Only Doctor Unassigned, Gilbert [facility] 1.2.840.114 350.1.13.10 4.2.7.2.686 [id number] [facility] 2022-02-18 00:00:00 2022-02-18 00:00:00 Umu Foley Mathew [facility] DEENA KIM [facility] 1.2.840.114 350.1.13.10 4.2.7.2.686 [id number] [facility] 2021-12-27 11:24:00 2021-12-27 11:24:00 Outpatient WATERS_S [facility] [id number] 2021-12-27 00:00:00 2021-12-27 00:00:00 Outpatient Deirdre Swasnon [facility] [id number] 2021-12-27 00:00:00 2021-12-27 00:00:00 Deirdre Swanson APRN-BAGGAGE SECURITY CHECKER-C: [address] [place] [address], [facility] [address] [place] [phone] , Ph. [facility] [id number] [facility] 2021-12-26 09:18:00 2021-12-26 09:18:00 Outpatient WATERS_S [facility] [id number] [facility] 2021-10-15 00:00:00 2021-10-15 00:00:00 Orders Only Doctor Unassigned, Gilbert [facility] 1.2.840.114 350.1.13.10 4.2.7.2.686 [id number] [facility] 2021-03-08 08:00:00 2021-03-08 08:00:00 Outpatient BINH ADAME [facility] [id number] [facility] 2020-12-05 15:00:00 2020-12-05 15:00:00 Outpatient BINH ADAME [facility] [id number] [facility] 2020-11-06 14:45:00 2020-11-06 14:45:00 Outpatient BINH ADAME [facility] [id number] [facility] 2020-10-02 09:45:00 2020-10-02 09:45:00 Outpatient R ELDER ROBBINSEN [facility] [id number] [facility] 2020-09-29 09:30:00 2020-09-29 09:30:00 Outpatient P [facility] [id number] [facility] 2020-09-28 13:45:00 2020-09-28 13:45:00 Outpatient R BINH ROBBINS [facility] [id number] [facility] 2020-09-22 10:30:00 2020-09-22 10:30:00 Outpatient P [facility] [id number] [facility] 2020-09-20 14:45:00 2020-09-20 14:45:00 Outpatient BINH ADAME [facility] [id number] [facility] 2020-09-19 11:15:00 2020-09-19 11:15:00 Outpatient R MATHEW FOLEY [facility] [id number] [facility] 2020-09-14 09:15:00 2020-09-14 09:15:00 Outpatient R MATHEW FOLEY [facility] [id number] [facility] 2020-09-12 09:00:00 2020-09-12 09:00:00 Outpatient R MATHEW FOLEY [facility] [id number] [facility] 2020-09-11 11:00:00 2020-09-11 11:00:00 Outpatient BINH ADAME [facility] [id number] [facility] 2020-09-04 19:20:00 2020-09-04 19:20:00 Outpatient R JAVAN CHEN [facility] [id number] [facility] 2020-08-29 15:30:00 2020-08-29 15:30:00 Outpatient R BINH ROBBINS [facility] [id number] [facility] 2020-08-16 10:00:00 2020-08-16 10:00:00 Outpatient P [facility] [id number] [facility] 2020-08-15 10:00:00 2020-08-15 10:00:00 Outpatient R MATHEW FOLEY [facility] [id number] [facility] 2020-07-31 13:15:00 2020-07-31 13:15:00 Outpatient R BINH ROBBINS [facility] [id number] [facility] 2020-07-17 11:00:00 2020-07-17 11:00:00 Outpatient R MATHEW FOLEY [facility] [id number] [facility] 2020-06-12 15:15:00 2020-06-12 15:15:00 Outpatient R BINH ROBBINS [facility] [id number] [facility] 2020-06-12 09:30:00 2020-06-12 09:30:00 Outpatient R BINH ROBBINS [facility] [id number] [facility] 2020-06-09 11:30:00 2020-06-09 11:30:00 Outpatient R BINH ROBBINS [facility] [id number] [facility] 2020-05-31 13:00:00 2020-05-31 13:00:00 Outpatient P [facility] [id number] [facility] 2020-05-29 10:45:00 2020-05-29 10:45:00 Outpatient P [facility] [id number] [facility] 2020-05-25 11:00:00 2020-05-25 11:00:00 Outpatient P [facility] [id number] [facility] 2020-05-15 11:15:00 2020-05-15 11:15:00 Outpatient R MATHEW FOLEY [facility] [id number] [facility] 2020-05-12 09:30:00 2020-05-12 09:30:00 Outpatient R MATHEW FOLEY [facility] [id number] [facility] 2020-04-14 10:15:00 2020-04-14 10:15:00 Outpatient [facility] [id number] [facility] 2020-04-12 11:15:00 2020-04-12 11:15:00 Outpatient MATHEW [facility] [id number] [facility] 2020-03-15 09:30:00 2020-03-15 09:30:00 Outpatient BINH [facility] [id number] [facility] 2020-02-16 13:00:00 2020-02-16 13:00:00 Outpatient BINH [facility] [id number] [facility] 2019-08-19 11:14:00 2019-08-19 11:14:00 [facility] [id number] [facility] 2018-12-08 16:12:00 2018-12-08 16:12:00 [facility] [id number] [facility] 2018-07-22 11:00:00 2018-07-22 11:00:00 [facility] [id number] [facility] 2018-07-16 16:00:00 2018-07-16 16:00:00 [facility]patient [facility] [id number] [facility] 2018-07-10 10:30:00 2018-07-10 10:30:00 [facility] [id number] [facility] 2018-07-01 14:45:00 2018-07-01 14:45:00 [facility] [id number] [facility] 2018-06-12 10:00:00 2018-06-12 10:00:00 [facility] [id number] [facility] 2018-05-29 08:36:00 2018-05-29 08:36:00 [facility] [id number] [facility] 2018-05-22 13:07:00 2018-05-22 13:07:00 [facility] [id number] [facility] 2018-05-22 10:30:00 2018-05-22 10:30:00 [facility] [id number] [facility] 2018-05-15 15:25:00 2018-05-15 15:25:00 [facility] [id number] [facility] 2018-04-24 11:15:00 2018-04-24 11:15:00 [facility] [id number] [facility] 2018-03-27 09:00:00 2018-03-27 09:00:00 [facility] [id number] [facility] 2018-02-24 14:00:00 2018-02-24 14:00:00 [facility] [id number] [facility] 2018-01-23 10:30:00 2018-01-23 10:30:00 [facility] [id number] [facility] Results Test Description Test Time Test Comments Results Result Co mments Source [facility] with [id number] 10:26:35* Test Item Value Reference Range Interpretation Comme nts WBC (test code = 6690-2) 11.18 See_Comment H [Automated messa ge] The system which generated this result transmitted reference range: 4.30 - 11.10 10*3/?L. The reference range was not used to interpret this result as normal/abnormal. RBC (test code = 789-8) 3.30 See_Comment L [Automated messa ge] The system which generated this result transmitted reference range: 3.93 - 5.25 10*6/?L. The reference range was not used to interpret this result as normal/abnormal. HGB (test code = 718-7) 9.8 g/dL 11.6-15.0 L HCT (test code = 4544-3) 29.8 % 35.7-45.2 L MCV (test code = 787-2) 90.3 fL 80.6-95.5 MCH (test code = 785-6) 29.7 pg 25.9-32.8 MCHC (test code = 786-4) 32.9 g/dL 31.6-35.1 RDW-SD (test code = 05620-2) 47.2 fL 39.0-49.9 RDW-CV (test code = 788-0) 14.5 % 12.0-15.5 PLT (test code = 777-3) 172 See_Comment [Automated messa ge] The system which generated this result transmitted reference range: 166 - 358 10*3/?L. The reference range was not used to interpret this result as normal/abnormal. MPV (test code = 01169-9) 10.2 fL 9.5-12.9 NRBC/100 WBC (test code = 6288129671) 0.0 See_Comment [Automated mWater ssage] The system which generated this result transmitted reference range: 0.0 - 10.0 /100 WBCs. The reference range was not used to interpret this result as normal/abnormal. NRBC x10^3 (test code = 3297355246) See_Comment [Automated messa ge] The system which generated this result transmitted reference range: 10*3/?L. The reference range was not used to interpret this result as normal/abnormal. GRAN MAT (NEUT) % (test code = 770-8) 72.3 % IMM GRAN % (test code = 3452969902) 0.60 % LYMPH % (test code = 736-9) 20.1 % MONO % (test code = 5905-5) 6.3 % EOS % (test code = 713-8) 0.4 % BASO % (test code = 706-2) 0.3 % GRAN MAT x10^3(ANC) (test code = 4873190138) 8.08 10*3/uL 1.88-7.09 H IMM GRAN x10^3 (test code = 9962732960) 0.07 10*3/uL 0.00-0.06 H LYMPH x10^3 (test code = 731-0) 2.25 10*3/uL 1.32-3.29 MONO x10^3 (test code = 742-7) 0.70 10*3/uL 0.33-0.92 EOS x10^3 (test code = 711-2) 0.05 10*3/uL 0.03-0.39 BASO x10^3 (test code = 704-7) 0.03 10*3/uL 0.01-0.07 Lab Interpretation (test code = 87838-3) [facility] - [id number] 06:17:13* Test Item Value Reference Range Interpretation Comme nts RPR (Qualitative) (test code = 03397-5) Nonreactive Nonreactive Lab Interpretation (test cod e = 59637-8) Normal [facility] IMMUNE [id number] 22:05:40* Test Item Value Reference Range Interpretation Comme nts RHIG CANDIDATE? (test code = 5188) No- see comment Patient is not a candidate for RhIg- Patient is Rh Positive.Performed at [facility] Laboratory Services - [facility] Blood [address] [place] [id number] Free: [phone] No. [id number] [facility] Hospital[facility]atitis B Surface [id number] 17:05:49 * Test Item Value Reference Range Interpretation Comme nts HBsAg Semi-Quantitative (isaac t code = 5195-3) 0.07 Negative [facility] [id number] 13:03:00 Fredi Burns MD ? ? 10/20/2023 ?7:24 AM Central Neuraxial Block Date/Time: 10/20/2023 7:03 AM Performed by: Fredi Burns MDAuthorized by: Fredi Burns MD ?Patient Location: OBEnd Time: 10/20/2023 7:23 AMReason for Block: OB request, Patient request and Labor analgesiaStaff: ?Anesthesiologist: Fredi Burns MD ?Performed by: anesthesiologistPreanesthetic Checklist: patient identified, IV checked, risks and benefits explained, monitors and equipment checked, timeout performed, ob surgical consent/approval, pre-op evaluation, surgical consent, site marked, anesthesia consent, OB/surgical consent verified, ob/surgical consent verified and ob/surgical consent approvalProcedure: ?Type of Neuraxial: Epidural ?Epidural Description: 1st attempt ? Sterility Prep cap, drape, gloves, hand hygiene and mask ? ?Sedation Level no sedation ?Patient Position: sitting ?Prep: Betadine and patient draped ? ?Monitoring: heart rate, continuous pulse ox, heart rate / toco and NIBP ?Location: lumbar (1-5) ?Lumbar: L3-L4 ?Approach: midline ? ?Technique: JALIL air and catheter ?Guidance with: landmark technique}Epidural/Spinal [place] and/or Catheter: ?Epidural/Spinal Kit: BBraun ?Needle Type: Tuohy ?Needle Gauge: 17 G ?Needle Length: 3.5 in (8.89 cm) ?Needle Insertion Depth: 5.5 ?Catheter Type: multiport ? ?Catheter Size: 19 G ? ?Catheter at Skin Depth: 11 ?Number of Attempts: 1 ?Test Dose: lidocaine 1.5% with epinephrine 1-to-200,000 and negative ? ?Dose: 3 cc ? ?Catheter Securement Method:Tegaderm, surgical tape and clear occlusive dressingAssessment: ?Sensory Level: above T10 ?Block Outcome: successful block, no apparent complications, pain relieved, patient tolerated procedure well,patient satisfied, patient comfortable, positive pain relief, appropriate motor block, appropriate sensory block and pain improved ? ?Procedure Assessment: patient tolerated procedure well with no complicationsNotes: ? Smooth and atraumatic, (+) Local, (+) STF, attempt x1, neg aspiration, neg test dose, no apparent complications.[facility] with Fqldcf5846-17-14 12:46:33* Test Item Value Reference Range Interpretation Comme nts HIV Semi-quantitative (test code = 92679-0) 0.09 Negative DANI (test code = DANI) Non-reactive for HIV-1 antigen and HIV-1/HIV-2 antibodies. ?No laboratory evidence of HIV infection. ?Repeat in 2-4 weeks if acute HIV infection is suspected. [facility] with Guluphmnjdql5491-02-78 12:21:09* Test Item Value Reference Range Interpretation Comme nts WBC (test code = 6690-2) 8.16 See_Comment [Automated messa ge] The system which generated this result transmitted reference range: 4.30 - 11.10 10*3/?L. The reference range was not used to interpret this result as normal/abnormal. RBC (test code = 789-8) 3.56 See_Comment L [Automated messa ge] The system which generated this result transmitted reference range: 3.93 - 5.25 10*6/?L. The reference range was not used to interpret this result as normal/abnormal. HGB (test code = 718-7) 10.6 g/dL 11.6-15.0 L HCT (test code = 4544-3) 31.4 % 35.7-45.2 L MCV (test code = 787-2) 88.2 fL 80.6-95.5 MCH (test code = 785-6) 29.8 pg 25.9-32.8 MCHC (test code = 786-4) 33.8 g/dL 31.6-35.1 RDW-SD (test code = 24527-2) 46.1 fL 39.0-49.9 RDW-CV (test code = 788-0) 14.4 % 12.0-15.5 PLT (test code = 777-3) 201 See_Comment [Automated messa ge] The system which generated this result transmitted reference range: 166 - 358 10*3/?L. The reference range was not used to interpret this result as normal/abnormal. MPV (test code = 65442-1) 10.3 fL 9.5-12.9 NRBC/100 WBC (test code = 1361080725) 0.0 See_Comment [Automated mWater ssage] The system which generated this result transmitted reference range: 0.0 - 10.0 /100 WBCs. The reference range was not used to interpret this result as normal/abnormal. NRBC x10^3 (test code = 8977058088) See_Comment [Automated messa ge] The system which generated this result transmitted reference range: 10*3/?L. The reference range was not used to interpret this result as normal/abnormal. GRAN MAT (NEUT) % (test code = 770-8) 59.5 % IMM GRAN % (test code = 7816660139) 0.90 % LYMPH % (test code = 736-9) 32.2 % MONO % (test code = 5905-5) 6.3 % EOS % (test code = 713-8) 0.9 % BASO % (test code = 706-2) 0.2 % GRAN MAT x10^3(ANC) (test code = 5691398248) 4.86 10*3/uL 1.88-7.09 IMM GRAN x10^3 (test code = 4551917224) 0.07 10*3/uL 0.00-0.06 H LYMPH x10^3 (test code = 731-0) 2.63 10*3/uL 1.32-3.29 MONO x10^3 (test code = 742-7) 0.51 10*3/uL 0.33-0.92 EOS x10^3 (test code = 711-2) 0.07 10*3/uL 0.03-0.39 BASO x10^3 (test code = 704-7) 0.01-0.07 Lab Interpretation (test code = 44705-8) Abnormal [facility] - ONCE [id number] 11:36:00 * Test Item Value Reference Range Interpretation Comme nts ABO & RH (test code = 20) O Positive IAT (test code = 1185) Negative [facility] Urinalysis w/o Specific [id number] 21:26:00* Test Item Value Reference Range Interpretation Comme nts POCT PH U (test code = 3254) n/a 5-8 POCT U LEUK EST (test code = 3263) n/a Negative - Negative POCT U NIT (test code = 3262) n/a Negative - Negati ve POCT U PROT (test code = 3259) Negative Negative - Negat triny POCT U GLU (test code = 3256) Normal Negative - Negati ve POCT U KETONE (test code = 3258) n/a Negative - Neg ative POCT U BLD (test code = 3257) n/a Negative - Negati ve [facility] Urinalysis w/o Specific [id number] 21:37:00* Test Item Value Reference Range Interpretation Comme nts POCT PH U (test code = 3254) n/a 5-8 POCT U LEUK EST (test code = 3263) n/a Negative - Negative POCT U NIT (test code = 3262) n/a Negative - Negati ve POCT U PROT (test code = 3259) negative Negative - Negat triny POCT U GLU (test code = 3256) negative Negative - Negati ve POCT U KETONE (test code = 3258) n/a Negative - Neg ative POCT U BLD (test code = 3257) n/a Negative - Negati ve [facility] URINALYSIS W/O SPECIFIC [id number] 19:03:00* Test Item Value Reference Range Interpretation Comme nts POCT PH U (test code = 3254) na 5-8 POCT U LEUK EST (test code = 3263) na Negative - Negative POCT U NIT (test code = 3262) na Negative - Negati ve POCT U PROT (test code = 3259) negative Negative - Negat triny POCT U GLU (test code = 3256) negtive Negative - Negati ve POCT U KETONE (test code = 3258) na Negative - Neg ative POCT U BLD (test code = 3257) na Negative - Negati ve Lab Interpretation (test cod e = 42591-0) Normal [facility] METABOLIC PANEL (NA, K, CL, CO2, GLUCOSE, BUN, CREATININE, CA)2023-09-16 17:11:34* Test Item Value Reference Range Interpretation Comme nts NA (test code = 8558340739) 133 mmol/L 135-145 L K (test code = 6111935371) 3.4 mmol/L 3.5-5.0 L CL (test code = 9680491574) 111 mmol/L 98-108 H CO2 TOTAL (test code = 3654826088) 16 mmol/L 23-31 L AGAP (test code = 2017639418) 6 2-16 BUN (test code = 3368640938) 3 mg/dL 7-23 L GLUCOSE (test code = 3108173396) 120 mg/dL 70-110 H CREATININE (test code = 4502578176) 0.36 mg/dL 0.50-1.04 L CALCIUM (test code = 8964121027) 8.0 mg/dL 8.6-10.6 L eGFR (test code = 53179-3) 143.8 mL/min/1.73m2 CKD-EPI eGFR (2020). Assuming creatinine has been stable day-to-day for at least three months, the eGFR indicates Category G1 (>= 90 mL/min/1.73 m2) Lab Interpretation (test code = 43809-9) Abnormal [facility] METABOLIC PANEL (NA, K, CL, CO2, GLUCOSE, BUN, CREATININE, CA)2023-09-15 21:49:18* Test Item Value Reference Range Interpretation Comme nts NA (test code = 5647756048) 132 mmol/L 135-145 L K (test code = 8088551359) 3.8 mmol/L 3.5-5.0 CL (test code = 6675676306) 109 mmol/L 98-108 H CO2 TOTAL (test code = 3584268446) 17 mmol/L 23-31 L AGAP (test code = 4855024980) 6 2-16 BUN (test code = 8502913420) 4 mg/dL 7-23 L GLUCOSE (test code = 3084644946) 109 mg/dL 70-110 CREATININE (test code = 1424619123) 0.43 mg/dL 0.50-1.04 L CALCIUM (test code = 3090183337) 8.4 mg/dL 8.6-10.6 L eGFR (test code = 31554-4) 137.8 mL/min/1.73m2 CKD-EPI eGFR (2020). Assuming creatinine has been stable day-to-day for at least three months, the eGFR indicates Category G1 (>= 90 mL/min/1.73 m2) Lab Interpretation (test code = 32093-1) Abnormal [facility]. METABOLIC PANEL (88858)2023-09-15 04:27:25* Test Item Value Reference Range Interpretation Comme nts NA (test code = 1884012147) 133 mmol/L 135-145 L K (test code = 5449504249) 3.2 mmol/L 3.5-5.0 L CL (test code = 3594233467) 104 mmol/L 98-108 CO2 TOTAL (test code = 2743365594) 20 mmol/L 23-31 L AGAP (test code = 8564332916) 9 2-16 BUN (test code = 1774626858) 9 mg/dL 7-23 GLUCOSE (test code = 9296052552) 96 mg/dL 70-110 CREATININE (test code = 1231278934) 0.38 mg/dL 0.50-1.04 L TOTAL BILI (test code = 3371712946) 1.0 mg/dL 0.1-1.1 CALCIUM (test code = 2020810143) 9.0 mg/dL 8.6-10.6 T PROTEIN (test code = 8396624558) 7.0 g/dL 6.3-8.2 ALBUMIN (test code = 9222486938) 3.8 g/dL 3.5-5.0 ALK PHOS (test code = 9807609124) 90 U/L 34-122 ALTv (test code = 1742-6) 13 U/L 5-35 AST(SGOT) (test code = 4411928272) 21 U/L 13-40 eGFR (test code = 65072-3) 141.9 mL/min/1.73m2 CKD-EPI eGFR (2020). Assuming creatinine has been stable day-to-day for at least three months, the eGFR indicates Category G1 (>= 90 mL/min/1.73 m2) Lab Interpretation (test code = 53781-6) [facility] 04:27:05* Test Item Value Reference Range Interpretation Comme nts LIPASE (test code = 6656028063) 74 U/L 0-220 Lab Interpretation (test cod e = 64645-8) Normal [facility] 04:26:05* Test Item Value Reference Range Interpretation Comme nts DAMI (test code = 5546496401) 76 U/L 35-110 Lab Interpretation (test cod e = 31222-7) Normal [facility] WITH [id number] 04:12:46* Test Item Value Reference Range Interpretation Comme nts WBC (test code = 6690-2) 6.11 See_Comment [Automated messa ge] The system which generated this result transmitted reference range: 4.30 - 11.10 10*3/?L. The reference range was not used to interpret this result as normal/abnormal. RBC (test code = 789-8) 3.74 See_Comment L [Automated messa ge] The system which generated this result transmitted reference range: 3.93 - 5.25 10*6/?L. The reference range was not used to interpret this result as normal/abnormal. HGB (test code = 718-7) 11.3 g/dL 11.6-15.0 L HCT (test code = 4544-3) 34.2 % 35.7-45.2 L MCV (test code = 787-2) 91.4 fL 80.6-95.5 MCH (test code = 785-6) 30.2 pg 25.9-32.8 MCHC (test code = 786-4) 33.0 g/dL 31.6-35.1 RDW-SD (test code = 07202-0) 45.6 fL 39.0-49.9 RDW-CV (test code = 788-0) 13.8 % 12.0-15.5 PLT (test code = 777-3) 179 See_Comment [Automated messa ge] The system which generated this result transmitted reference range: 166 - 358 10*3/?L. The reference range was not used to interpret this result as normal/abnormal. MPV (test code = 93214-4) 10.3 fL 9.5-12.9 NRBC/100 WBC (test code = 1684787676) 0.0 See_Comment [Automated mWater ssage] The system which generated this result transmitted reference range: 0.0 - 10.0 /100 WBCs. The reference range was not used to interpret this result as normal/abnormal. NRBC x10^3 (test code = 8888477820) See_Comment [Automated messa ge] The system which generated this result transmitted reference range: 10*3/?L. The reference range was not used to interpret this result as normal/abnormal. GRAN MAT (NEUT) % (test code = 770-8) 88.8 % IMM GRAN % (test code = 1217151436) 0.70 % LYMPH % (test code = 736-9) 4.9 % MONO % (test code = 5905-5) 5.4 % EOS % (test code = 713-8) 0.0 % BASO % (test code = 706-2) 0.2 % GRAN MAT x10^3(ANC) (test code = 5463090969) 5.43 10*3/uL 1.88-7.09 IMM GRAN x10^3 (test code = 7514221574) 0.04 10*3/uL 0.00-0.06 LYMPH x10^3 (test code = 731-0) 0.30 10*3/uL 1.32-3.29 L MONO x10^3 (test code = 742-7) 0.33 10*3/uL 0.33-0.92 EOS x10^3 (test code = 711-2) 0.03-0.39 L BASO x10^3 (test code = 704-7) 0.01-0.07 Lab Interpretation (test code = 76068-9) [facility] [id number] 21:51:00* Test Item Value Reference Range Interpretation Comme nts POCT PH U (test code = 3254) n/a 5-8 POCT U LEUK EST (test code = 3263) n/a Negative - Negative POCT U NIT (test code = 3262) n/a Negative - Negati ve POCT U PROT (test code = 3259) Negative Negative - Negat triny POCT U GLU (test code = 3256) Normal Negative - Negati ve POCT U KETONE (test code = 3258) n/a Negative - Neg ative POCT U BLD (test code = 3257) n/a Negative - Negati ve [facility] [id number] 16:29:00* Test Item Value Reference Range Interpretation Comme nts POCT PH U (test code = 3254) n/a 5-8 POCT U LEUK EST (test code = 3263) n/a Negative - Negative POCT U NIT (test code = 3262) n/a Negative - Negati ve POCT U PROT (test code = 3259) negative Negative - Negat triny POCT U GLU (test code = 3256) negative Negative - Negati ve POCT U KETONE (test code = 3258) n/a Negative - Neg ative POCT U BLD (test code = 3257) n/a Negative - Negati ve [facility] URINALYSIS W/O SPECIFIC [id number] 18:06:00* Test Item Value Reference Range Interpretation Comme nts POCT PH U (test code = 3254) n/a 5-8 POCT U LEUK EST (test code = 3263) n/a Negative - Negative POCT U NIT (test code = 3262) n/a Negative - Negati ve POCT U PROT (test code = 3259) negative Negative - Negat triny POCT U GLU (test code = 3256) normal Negative - Negati ve POCT U KETONE (test code = 3258) n/a Negative - Neg ative POCT U BLD (test code = 3257) n/a Negative - Negati ve [facility] URINALYSIS W/O SPECIFIC [id number] 17:54:00* Test Item Value Reference Range Interpretation Comme nts POCT PH U (test code = 3254) n/a 5-8 POCT U LEUK EST (test code = 3263) n/a Negative - N egative POCT U NIT (test code = 3262) n/a Negative - Negati ve POCT U PROT (test code = 3259) Trace Negative - Negat triny POCT U GLU (test code = 3256) Normal Negative - Negati ve POCT U KETONE (test code = 3258) n/a Negative - Neg ative POCT U BLD (test code = 3257) n/a Negative - Negati ve [facility] URINALYSIS W/O SPECIFIC [id number] 20:58:00* Test Item Value Reference Range Interpretation Comme nts POCT PH U (test code = 3254) n/a 5-8 POCT U LEUK EST (test code = 3263) n/a Negative - Negative POCT U NIT (test code = 3262) n/a Negative - Negati ve POCT U PROT (test code = 3259) Negative Negative - Negat rtiny POCT U GLU (test code = 3256) Normal Negative - Negati ve POCT U KETONE (test code = 3258) n/a Negative - Neg ative POCT U BLD (test code = 3257) n/a Negative - Negati ve [facility] [id number] 15:06:00* Test Item Value Reference Range Interpretation Comme nts POCT PREG (test code = 1605) Positive On board controls acceptable with C Line (test code = 3574) Yes POCT PREG LOT # (test code = 3575) POCT PREG TEST DATE ( test code = 3576) [facility] [id number] 16:46:00* Test Item Value Reference Range Interpretation Comme nts POCT PREG (test code = 1605) Negative On board controls acceptable with C Line (test code = 3574) Yes POCT PREG LOT # (test code = 3575) POCT PREG TEST DATE ( test code = 3576) Lab Interpretation (test cod e = 21628-8) Normal [facility] [id number] 16:46:00* Test Item Value Reference Range Interpretation Comme nts POCT PREG (test code = 1605) Negative On board controls acceptable with C Line (test code = 3574) Yes POCT PREG LOT # (test code = 3575) POCT PREG TEST DATE ( test code = 3576) Lab Interpretation (test cod e = 57438-2) Normal [facility] History and Physical Notes Date/Time Note Provider Source 2023-10-20 06:30:40 TRIAGE HISTORY & PHYSICAL IDENTIFYING DATA Mary Jo Lopez is 28 year old, /White, 39w1d, female with MAXINE 10/26/2023, by Last Menstrual Period. : 1995 Primary Care Physician: PATIENT DOES NOT HAVE A PCP CHIEF COMPLAINT Induction at 39 wks HISTORY OF PRESENT ILLNESS Mary Jo Lopez is a 28 year old female @ 39w1d +FM. No VB, LOF. + CTX. No pre-eclampsia sx or other complaints. PAST OBSTETRIC HISTORY OB History Para Term AB Living 3 2 2 2 SAB IAB Ectopic Multiple Live Births 0 2 # Outcome Date GA Lbr Sean/2nd Weight Sex Delivery Anes PTL Lv 3 Current 2 Term 10/03/20 39w0d 4010 g M NORMAL SPONT EPI N NEAL 1 Term 07/30/18 3487 g NORMAL SPONT EPI N NEAL Complications: Vaginal Bleeding PAST MEDICAL HISTORY Problem list: Patient Active Problem List Diagnosis Date Noted 39 weeks gestation of 10/20/2023 Maternal varicella, non-immune 05/13/2023 High-risk in third trimester 04/09/2023 History of macrosomia in in prior , currently 04/09/2023 Vomiting 03/15/2020 Operations: No past surgical history on file. Past Medical History: Diagnosis Date Anemia Screening for STD (sexually transmitted disease) 02/27/2022 CURRENT HEALTH STATUS Medications: Current Facility-Administered Medications Medication Dose Route Frequency Last Rate Last Admin carboprost (HEMABATE) injection 250 mcg 250 mcg Intramuscular Q2HPRN D5W-LR IV infusion 1,000 mL 1,000 mL IV Infusion TITRATE Stopped at 10/20/23 0603 famotidine (PEPCID (PF)) injection 20 mg 20 mg Slow IV Push [id number] 20 mg at 10/20/23 0550 FENTanyl PF (SUBLIMAZE (PF)) injection 50 mcg 50 mcg Slow IV Push Q1HPRN lactated ringers IV infusion 500 mL 500 mL IV Infusion PRN - SEE INSTRUCTIONS lactated ringers IV infusion 500 mL 500 mL IV Infusion PRN - SEE INSTRUCTIONS lidocaine 1% (PF) (XYLOCAINE) injection 0.3 mL 0.3 mL Infiltration PRN - SEE INSTRUCTIONS methylergonovine (METHERGINE) injection 0.2 mg 0.2 mg Intramuscular Q4HPRN miSOPROStoL (CYTOTEC) tablet 200 mcg 200 mcg Rectal PRN ondansetron (ZOFRAN (PF)) injection 4 mg 4 mg Slow IV Push Q8HPRN 4 mg at 10/20/23 0515 oxytocin (PITOCIN) 30 units in NS 500 mL IV infusion 600 mL/hr IV Infusion PRN oxytocin (PITOCIN) 30 units in NS 500 mL IV infusion 2-40 serafin-units/min IV Infusion TITRATE 6 mL/hr at 10/20/23 0730 6 serafin-units/min at 10/20/23 0730 sodium citrate-citric acid (BICITRA) 500-334 mg/5 mL solution 30 mL 30 mL Oral PRE-PROCEDURE ONCE sodium citrate-citric acid (BICITRA) 500-334 mg/5 mL solution 30 mL 30 mL Oral PRE-PROCEDURE ONCE terbutaline (BRETHINE) injection 0.25 mg 0.25 mg Subcutaneous PRN tranexamic acid (CYKLOKAPRON) 1,000 mg in NaCl 0.9% (NS) 250 mL piggyback 1,000 mg IV Piggyback PRN Facility-Administered Medications Ordered in Other Encounters Medication Dose Route Frequency Last Rate Last Admin fentaNYL-ropivacaine 2 mcg/mL-0.1 % (PF) in NS 200 mL epidural infusion RTU Epidural ONCE INTRA PROCEDURE 12 mL/hr at 10/20/23 0719 lidocaine-epinephrine (XYLOCAINE W/EPINEPHRINE) 1.5 %-1:200,000 injection Intradermal ONCE INTRA PROCEDURE 3 mL at 10/20/23 0713 Allergies and drug reactions: Patient has no known allergies. HOME MEDICATIONS Medications Prior to Admission Medication Sig Dispense Refill Last Dose calcium carbonate (TUMS ORAL) Take by mouth. Not Taking Lactobacillus acidophilus (PROBIOTIC ORAL) Take by mouth. Not Taking MAGNESIUM ORAL Take by mouth. Not Taking PNV no.95/ferrous fum/folic ac ( ORAL) Take by mouth. Taking albuterol 90 mcg/actuation inhaler Inhale 2 Puffs every 4 (four) hours as needed for Wheezing or Shortness of Breath. 8.5 g 0 Not Taking SOCIAL HISTORY Tobacco History: Social History Tobacco Use Smoking Status Never Smokeless Tobacco Never Drug History: Social History Substance and Sexual Activity Drug Use Never Alcohol History: Social History Substance and Sexual Activity Alcohol Use Not Currently FAMILY HISTORY No family history on file. REVIEW OF SYSTEMS General: negative Constitutional: negative Eyes: negative ENT/Mouth: negative Cardiovascular: negative Respiratory: negative Gastrointestinal:negative Genitourinary: negative Musculoskeletal: negative Skin/breast: negative Neurological: negative Psychiatric: negative Endocrine: negative Hemat/Lymph: negative Allergic/Immuno:none VITAL SIGNS BP: (102-120)/(57-74) Temp: [36.6 ?C (97.8 ?F)-36.7 ?C (98 ?F)] Temp source: Temporal Artery (10/20 658) Pulse: [77-90] Resp: [12-14] SpO2: [97 %-100 %] Height: [160 cm (5' 3")] Weight: [70.4 kg (155 lb 3.2 oz)] BMI (calculated): [27.49] PHYSICAL EXAMINATIONS Gen: alert and oriented, well appearing, no distress CV: RRR, normal S1/S2, no m/r/g Resp: normal work of breathing, lungs CTAB Abd: gravid, soft, NTTP Ext: no calf tenderness or edema : SVE 1/50/-3, s/p AROM (thin mec without complications) REVIEW OF LABORATORY, PATHOLOGY, AND RADIOLOGY DATA Lab results: Type & Screen HIV Hep B Syphilis Chlamydia ABO & RH Date Value Ref Range Status 10/20/2023 O Positive Final No results found for: "HIVMULTIPLEX" No components found for: "HBSHBSAG" Syphilis IgG/IgM Date Value Ref Range Status 07/17/2020 Non-reactive Non-reactive Final C. trachomatis Nucleic Acid Date Value Ref Range Status 09/15/2023 Negative Negative Final IAT Date Value Ref Range Status 10/20/2023 Negative Final Varicella Rubella Glucose Group B Strep CBC VZV IgG antibody Date Value Ref Range Status 04/09/2023 Negative Negative Final Rubella screen IgG Date Value Ref Range Status 04/14/2020 Positive Negative Final GLUC 1 HR Date Value Ref Range Status 07/17/2023 125 120 - 170 mg/dL Final No results found for: "CGBS" HGB Date Value Ref Range Status 10/20/2023 10.6 (L) 11.6 - 15.0 g/dL Final HCT Date Value Ref Range Status 10/20/2023 31.4 (L) 35.7 - 45.2 % Final PLT Date Value Ref Range Status 10/20/2023 201 166 - 358 10*3/?L Final Active Hospital Problems Diagnosis Date Noted 39 weeks gestation of 10/20/2023 High-risk in third trimester 04/09/2023 History of macrosomia in infant in prior , currently 04/09/2023 Resolved Hospital Problems No resolved problems to display. Present on Admission: 39 weeks gestation of High-risk in third trimester History of macrosomia in in prior , currently Placenta Accreta Screening Prior ? : No Prior Uterine Surgery?: No Placenta low lying/previa in current ? : No Screening outcome: A positive screening outcome indicates a history of prior delivery or prior uterine surgery, AND the presence of either a placenta low lying/previa or ultrasound suspicion of PASD in the current . Negative screening. ASSESSMENT AND PLAN Mary Jo Lopez is a 28 year old female @ 39w1d here for an elective induction. Induction - s/p AROM. Pitocin per protocol - Cephalic presentation confirmed - GBS neg - Gregorio EFW < 4500 grams. EFW 2424 grams on 09/15/23 ultrasound Hx of macrosomia with prior delivery - EFW [address] Robbins, please see OB Summary for more details Bihn Robbins MD 10/20/2023 6:32 AM [facility] Procedure Notes Date/Time Note Provider Source 2023-10-20 07:23:40 Associated Order(s): Central Neuraxial Block Central Neuraxial Block Date/Time: 10/20/2023 7:03 AM Performed by: Fredi Burns MD Authorized by: Fredi Burns MD Patient Location: OB End Time: 10/20/2023 7:23 AM Reason for Block: OB request, Patient request and Labor analgesia Staff: Anesthesiologist: Fredi Burns MD Performed by: anesthesiologist Preanesthetic Checklist: patient identified, IV checked, risks and benefits explained, monitors and equipment checked, timeout performed, ob surgical consent/approval, pre-op evaluation, surgical consent, site marked, anesthesia consent, OB/surgical consent verified, ob/surgical consent verified and ob/surgical consent approval Procedure: Type of Neuraxial: Epidural Epidural Description: 1st attempt Sterility Prep cap, drape, gloves, hand hygiene and mask Sedation Level no sedation Patient Position: sitting Prep: Betadine and patient draped Monitoring: heart rate, continuous pulse ox, heart rate / toco and NIBP Location: lumbar (1-5) Lumbar: L3-L4 Approach: midline Technique: JALIL air and catheter Guidance with: landmark technique} Epidural/Spinal [place] and/or Catheter: Epidural/Spinal Kit: [place] Needle Type: Tuohy Needle Gauge: 17 G Needle Length: 3.5 in (8.89 cm) Needle Insertion Depth: 5.5 Catheter Type: multiport Catheter Size: 19 G Catheter at Skin Depth: 11 Number of Attempts: 1 Test Dose: lidocaine 1.5% with epinephrine 1-to-200,000 and negative Dose: 3 cc Catheter Securement Method: Tegaderm, surgical tape and clear occlusive dressing Assessment: Sensory Level: above T10 Block Outcome: successful block, no apparent complications, pain relieved, patient tolerated procedure well, patient satisfied, patient comfortable, positive pain relief, appropriate motor block, appropriate sensory block and pain improved Procedure Assessment: patient tolerated procedure well with no complications Notes: Smooth and atraumatic, (+) Local, (+) STF, attempt x1, neg aspiration, neg test dose, no apparent complications. [facility]ATE [employer]ER AN-ANESTHESIOLOGY ANESTHESIOLOGIST [facility] Notes Date/Time Note Provider Source 2025-01-25 09:56:30 Pt given printed and verbal discharge instructions regarding urticaria, encouraged hydration, 2 Prescriptions sent. Pt verbalized understanding of instructions, pt awake alert oriented, resp reg unlabored, skin w/d, color appropriate for race, moves all ext well,pt encouraged to follow up with pcp and allergy. Advised to seek medical attention for new/prolonged/worsening of symptoms, Symptoms improved. No adverse reaction to meds given in ER noted upon discharge Awake, alert oriented, resp reg unlabored, skin w/d, pt leaving amb with steady gait, in no apparent distress, Cheyenne Little RN [facility] 2025-01-25 08:37:39 Pt arrived ambulatory with complaints of hives and swollen joints since yesterday. TA Wilhelm RN [facility] 2023-10-21 10:03:46 Problem: Falls, Risk of Goal: Absence of falls Outcome: Progressing as expected Problem: Complications of hemorrhage (risk or actual) Goal: Absence of active bleeding Outcome: Progressing as expected Goal: Absence of complications Outcome: Progressing as expected Problem: Infection Risk Goal: Absence of infection Outcome: Progressing as expected Problem: Bleeding, Risk of Goal: Absence of impaired coagulation signs and symptoms Outcome: Progressing as expected Goal: Absence of active bleeding Outcome: Progressing as expected Problem: Breast-feeding - Ineffective Goal: Effective breast-feeding Outcome: Progressing as expected Problem: Discharge Planning - Goal: Adequate for discharge Outcome: Progressing as expected Goal: Mood stable Outcome: Progressing as expected [facility] Nancy Roque RN [facility] 2023-10-20 18:48:07 Problem: Falls, Risk of Goal: Absence of falls Outcome: Progressing as expected Problem: Complications of hemorrhage (risk or actual) Goal: Absence of active bleeding Outcome: Progressing as expected Goal: Absence of complications Outcome: Progressing as expected Problem: Infection Risk Goal: Absence of infection Outcome: Progressing as expected Problem: Bleeding, Risk of Goal: Absence of impaired coagulation signs and symptoms Outcome: Progressing as expected Goal: Absence of active bleeding Outcome: Progressing as expected Problem: Breast-feeding - Ineffective Goal: Effective breast-feeding Outcome: Progressing as expected Problem: Discharge Planning - Goal: Adequate for discharge Outcome: Progressing as expected Goal: Mood stable Outcome: Progressing as expected [facility] 2023-10-20 18:27:23 Problem: Falls, Risk of Goal: Absence of falls Outcome: Progressing as expected Problem: Complications of hemorrhage (risk or actual) Goal: Absence of active bleeding Outcome: Progressing as expected Goal: Absence of complications Outcome: Progressing as expected Problem: Infection Risk Goal: Absence of infection Outcome: Progressing as expected Problem: Bleeding, Risk of Goal: Absence of impaired coagulation signs and symptoms Outcome: Progressing as expected Goal: Absence of active bleeding Outcome: Progressing as expected Problem: Breast-feeding - Ineffective Goal: Effective breast-feeding Outcome: Progressing as expected Problem: Discharge Planning - Goal: Adequate for discharge Outcome: Progressing as expected Goal: Mood stable Outcome: Progressing as expected Problem: Intrapartum process (including labor pain) Goal: Absence of or reduction of complications of labor Outcome: Resolved Goal: Able to cope with pain Outcome: Resolved Goal: Adequate to move to next level of care Outcome: Resolved Goal: Reduction in pain sensation Outcome: Resolved Amezcua RN [facility] 2023-10-20 15:11:19 DELIVERY BY SPONTANEOUS VAGINAL DELIVERY Delivery Date: 10/20/2023 Delivery Time: 1:16 PM Delivery Summary Mary Jo Lopez is a 28 year old female @ 39w1d. Hx of macrosomia with prior delivery. The patient was admitted to the Labor & Delivery unit for induction at 39 weeks. Delivery Physician: Binh Robbins MD Intrapartum Anesthesia/Analgesia: Epidural Mode of Delivery: Delivery of luis fetus with cephalic presentation Fetus Spontaneous vaginal delivery of head with cephalic position, right occipital anterior. As the head crowned and distended the perineum, no episiotomy was performed. A blue towel was used to protect the perineum as the head crowned and delivered. The other hand was used to exert pressure on the occiput to control the delivery of the head. The perineum was pushed with a towel-draped hand as the head and mouth was delivered over the perineum. The head was allowed to rotate externally to achieve natural body posture. Examination of neck revealed no umbilical cord. The shoulder was delivered by gentle downward traction applied to head and downward traction for the delivery of anterior shoulder. This was followed by upward traction with delivery of posterior shoulder and body. After the delivery of infant, bulb suction was performed from ororpharynx and nostril with removal of fluid. A normal, male was delivered. The umbilical cord was double clamped, cut and the infant was handed off the field to the circulating nurse Placenta Placenta was delivered spontaneously while the abdominal hand lifted the uterus cephalad and other hand keeping the umbilical cord slightly taut. Laceration: None Laceration Repair: No laceration repair needed. Fourth Stage Fourth stage of labor was managed by uterine massage with abdominal hand and infusion 30 units of pitocin mixed with intravenous fluid. QBL: see I/O's Complications: None Weight: 3650 g 1 Minute 5 Minute 10 Minute Totals: 9 10 Binh Robbins MD 10/20/2023 3:12 PM PLATE [employer]ER [facility] 2023-10-20 14:46:15 Patient: Mary Jo Lopez Procedure Summary Date: 10/20/23 Room / Location: Anesthesia Start: 704 Anesthesia Stop: 144 Procedure: CENTRAL NEURAXIAL BLOCK Diagnosis: Scheduled Providers: Responsible Provider: Fredi Burns MD Anesthesia Type: Epidural ASA Status: 2 Anesthesia Type: Epidural Last vitals BP 106/67 (10/20/23 1430) Temp Pulse 74 (10/20/23 1430) Resp 14 (10/20/23 1415) SpO2 98 % (10/20/23 1430) There were no known notable events for this encounter. Anesthesia Post Evaluation Patient location during evaluation: bedside Patient participation: complete - patient participated Level of consciousness: awake Pain score: 0 Pain management: adequate Airway patency: patent Cardiovascular status: acceptable Respiratory status: acceptable, room air, unassisted and spontaneous ventilation Hydration status: stable Comments: ANESTHESIA FACULTY EPIDURAL NOTE Date of service: 10/20/2023 Patient examined, patient awake s/p with KAREEM. Now s/p catheter removal. BP 106/67 | Pulse 74 | Temp 36.7 ?C (98 ?F) (Temporal Artery) | Resp 14 | Ht 1.6 m (5' 3") | Wt 70.4 kg (155 lb 3.2 oz) | LMP 01/19/2023 | SpO2 98% | Unknown | BMI 27.49 kg/m? Block not fully resolved, as expected. Patient participated otherwise. Block resolving appropriately. Patient discharged from L&D according to criteria. Complications: No apparent complications Fall precautions given Jessica Jeong MD PLATE L[employer]ER AN-ANESTHESIOLOGY ANESTHESIOLOGIST [facility] 2023-10-20 07:14:27 Name/ MRN / Age / Gender: Mary Jo Lopez, [id number] 28 year old female BMI: Estimated body mass index is 27.49 kg/m? as calculated from the following: Height as of this encounter: 1.6 m (5' 3"). Weight as of this encounter: 70.4 kg (155 lb 3.2 oz). Allergies: Patient has no known allergies. Last Vitals: BP Readings from Last 1 Encounters: 10/20/23 102/60 Pulse Readings from Last 1 Encounters: 10/20/23 79 SpO2 Readings from Last 1 Encounters: 10/20/23 97% Date of Surgery: Surgeon: * Surgery not found * Procedure: CENTRAL NEURAXIAL BLOCK OR Location: * No surgery found * Anesthesia History (-) Hx of anesthetic complications Previous Anesthetics/Airways Cardiovascular Negative Cardiac ROS Pulmonary Negative Pulmonary ROS Neuro/Musculoskeletal Negative Neuro/Musculosketal ROS GI/Hepatic Negative GI/Hepatic ROS Hematology Negative Hematology ROS Renal Negative Renal ROS Skin Negative Skin ROS Endo/Other Negative Endo/Other ROS Other ATTACHE Comments: 39 Pediatric Preoperative Medication Instructions Continue taking all prescribed medications except: DEREJE inhibitors, ARBs, diuretics, all oral diabetes medications Anticoagulant Therapy: Defer to surgeons Insulin: Take 1/2 dose the night prior to surgery. Hold on DOS. Phentermine: Alert [facility] anesthesiologist SGLT2 Inhibitors: "gliflozins" to be held for 3 days prior to elective surgeries GLP1 Agonosit: stop 7 days prior to surgery MAC Cases: Continue taking DEREJE inhibitors and ARBs ASA Classification ASA: 2 Current Medications: No outpatient medications have been marked as taking for the 10/20/23 encounter (Hospital Encounter). Previous Surgeries: No past surgical history on file. Anesthesia Physical Exam General no apparent distress and alert and oriented x 3 Neuro/Psych neurological Nonfocal Dental Abdominal GI exam normal (+) abdomen soft and benign Airway Mallampati score:II TM distance:> 5 cm Neck ROM: full Mouth opening:normal Extremity Normal extremity Pulmonary pulmonary exam normal and bilateral clear to auscultation Other Cardiovascular cardiovascular exam normalRhythm:Regular Rate: Normal Anesthesia Plan ASA Status: 2 Plan discussed during pre-op evaluation: Epidural Post-Operative Analgesia: routine analgesia & antiemetics Recovery Plan: LDR Additional comments: [facility] 2023-10-20 04:19:54 Problem: Intrapartum process (including labor pain) Goal: Absence of or reduction of complications of labor Outcome: Progressing as expected Goal: Able to cope with pain Outcome: Progressing as expected Goal: Reduction in pain sensation Outcome: Progressing as expected Problem: Falls, Risk of Goal: Absence of falls Outcome: Progressing as expected Problem: Complications of hemorrhage (risk or actual) Goal: Absence of active bleeding Outcome: Progressing as expected Goal: Absence of complications Outcome: Progressing as expected Problem: Infection Risk Goal: Absence of infection Outcome: Progressing as expected [facility] 2023-10-15 15:15:00 Age: [age] year old GA: 38w3d -Doing well without concerns -Irregular contractions. SVE 11/06/high. -Induction scheduled for 10/20/2023 at 39 weeks unless clinically indicated otherwise -Daily kick counts and labor precautions given -Follow-up in 4 to 6 weeks for visit [facility] 2023-10-08 15:30:00 Age: [age] year old GA: 37w3d -Doing well without concerns -Irregular contractions. SVE 11/06/high. -GBS negative on 09/15/2023 -Induction scheduled for 1 week 2439 weeks unless clinically indicated otherwise This reviews what Dr. Robbins talked about at your 36 week talk: 1. Go to Labor and Delivery when your contractions are 5-7 minutes apart and you have been able to time them for an hour. If you live more than 30 minutes from the hospital, then go when they are 10 minutes apart and you have been able to time them for an hour. 2. BUT, there are 4 reasons to go to Labor and Delivery REGARDLESS of what else is happening, whether you are beena or not: 1. If your water breaks - - - it may be a gush or a constant trickle. If you are not sure, always come in to be checked. 2. Bleeding like your period. 3. If your baby's movements are less than 10 in an hour. If you are concerned this might be the case, drink a tall glass of cold fluids, lay down on your side on the couch or your bed and see how long it takes to note 10 movements - if less than 10, this needs to be evaluated immediately. 4. Contractions or Pain that is continuous. Normal labor contractions last only 45 seconds - 1 minute. Cephalic presentation GC/CT and GBS obtained, CBC ordered Zika precautions reviewed Contraception PP: condoms Delivery consent signed today RTC in 1 wk for PN [employer]ATE L[employer]ER [facility] 2023-06-11 13:15:00 Formatting of this n ote might be different from the original. Age: [age] year old GA: 20w3d - Doing well - Maternal serum AFP negative - Anatomy scan scheduled for 06/23/23 -Follow-up in 4 weeks for visit [facility] 2023-05-13 16:30:00 Formatting of this n ote is different from the original. Images from the original note were not included. Venipuncture collection performed by clean technique on the left forearm(s). Total of 1 attempts were made. Slight pressure and a bandage/dressing were applied to the site(s). The patient experienced no complications. The following specimens were processed according to instructions and sent to [facility] laboratories per lab order on 05/13/2023 : LT BLUE 2 SST RED LAV PPT DK GREEN (LiHep) DK GREEN (SodH) GALLAGHER DK BLUE (K2) DK BLUE (S) ACD Blood Culture NIPT/NTD [facility] 2023-05-13 16:00:00 Formatting of this n ote might be different from the original. Age: [age] year old GA: 16w2d -Doing well -New OB labs within normal limits except for VZV nonimmune. Patient states that her [id number] was over for the weekend and had a rash. Her [id number] is being evaluated to see if it is shingles. Precautions given. -History of macrosomia: 1 hour GTT within normal limits -Panorama low risk male -Horizon 01/14 negative -Maternal serum AFP ordered -Anatomy scan ordered [facility]
--- NOTE | 2025-01-25 23:23 | EDPHYS ---
Physician Documentation [facility] Name: Mary Jo Holder Age: 29 yrs Sex: Female : 1995 Arrival Date: 01/25/2025 Time: 22:52 Bed DX1 Private MD: ED Physician Quan Hernandez HPI: 01/25 23:16 This 29 yrs old Female presents to ER via Unassigned with complaints of Hand neal Swelling, Feet Swelling. 23:16 The patient or guardian reports decreased range of motion, pain, a rash, swelling. The neal complaints affect the left hand diffusely, right hand diffusely. Context: The problem was sustained at home, resulted from an unknown cause. Modifying factors: The symptoms are alleviated by nothing, the symptoms are aggravated by movement, dependent position. Associated signs and symptoms: The patient has no apparent associated signs or symptoms. Severity of symptoms: At their worst the symptoms were moderate, in the emergency department the symptoms are unchanged. The patient has experienced similar episodes in the past, a few times. SPACER TYPE BAR AND SEGMENT: 23:35 LMP 01/12/2025, unknown vc1 Historical: - Allergies: 23:19 No Known Allergies; vc1 - PMHx: 23:19 None; vc1 - PSHx: 23:19 None; vc1 - Immunization history:: Adult Immunizations up to date. - Infectious Disease History:: Denies. - Family history:: not pertinent. - Social history:: Smoking status: Patient denies any tobacco usage or history of. ROS: 23:16 Constitutional: Negative for fever, chills, and weight loss, Eyes: Negative for injury, neal pain, redness, and discharge, ENT: Negative for injury, pain, and discharge, Neck: Negative for injury, pain, and swelling, Cardiovascular: Negative for chest pain, palpitations, and edema, Respiratory: Negative for shortness of breath, cough, wheezing, and pleuritic chest pain, Abdomen/GI: Negative for abdominal pain, nausea, vomiting, diarrhea, and constipation, Back: Negative for injury and pain, : Negative for injury, bleeding, discharge, and swelling, MS/Extremity: Negative for injury and deformity, Neuro: Negative for headache, weakness, numbness, tingling, and seizure, Psych: Negative for depression, anxiety, suicide ideation, homicidal ideation, and hallucinations, Allergy/Immunology: Negative for hives, rash, and allergies, Endocrine: Negative for neck swelling, polydipsia, polyuria, polyphagia, and marked weight changes, Hematologic/Lymphatic: Negative for swollen nodes, abnormal bleeding, and unusual bruising, 23:16 Skin: Positive for rash, Exam: 23:16 Constitutional: This is a well developed, well nourished patient who is awake, alert, neal and in no acute distress. Head/Face: Normocephalic, atraumatic. Eyes: Pupils equal round and reactive to light, extra-ocular motions intact. Lids and lashes normal. Conjunctiva and sclera are non-icteric and not injected. Cornea within normal limits. Periorbital areas with no swelling, redness, or edema. ENT: Nares patent. No nasal discharge, no septal abnormalities noted. Tympanic membranes are normal and external auditory canals are clear. Oropharynx with no redness, swelling, or masses, exudates, or evidence of obstruction, uvula midline. Mucous membranes moist. Neck: Trachea midline, no thyromegaly or masses palpated, and no cervical lymphadenopathy. Supple, full range of motion without nuchal rigidity, or vertebral point tenderness. No Meningismus. Chest/axilla: Normal chest wall appearance and motion. Nontender with no deformity. No lesions are appreciated. Cardiovascular: Regular rate and rhythm with a normal S1 and S2. No gallops, murmurs, or rubs. Normal PMI, no JVD. No pulse deficits. Respiratory: Lungs have equal breath sounds bilaterally, clear to auscultation and percussion. No rales, rhonchi or wheezes noted. No increased work of breathing, no retractions or nasal flaring. Abdomen/GI: Soft, non-tender, with normal bowel sounds. No distension or tympany. No guarding or rebound. No evidence of tenderness throughout. Back: No spinal tenderness. No costovertebral tenderness. Full range of motion. MS/ Extremity: Pulses equal, no cyanosis. Neurovascular intact. Full, normal range of motion., bilateral aka Neuro: Awake and alert, GCS 15, oriented to person, place, time, and situation. Cranial nerves II-XII grossly intact. Motor strength 5/5 in all extremities. Sensory grossly intact. Cerebellar exam normal. Normal gait. Psych: Awake, alert, with orientation to person, place and time. Behavior, mood, and affect are within normal limits. 23:16 Skin: Appearance: normal except for affected area, urticaria, Vital Signs: 22:52 BP 125 / 78; Pulse 72; Resp 16; Temp 98.3; Pulse Ox 97% ; Weight 61.23 kg; Height 5 ft. vc1 2 in. ; Pain 5/10; 22:52 Body Mass Index 24.69 (61.23 kg, 157.48 cm) vc1 22:52 Pain Scale: Adult vc1 MDM: 23:02 Medical Screening Exam initiated kb 23:18 Differential diagnosis: contusion, abrasion. Data reviewed: vital signs, nurses notes. neal Consideration of Admission/Observation Escalation of care including admission/observation considered. I considered the following discharge prescriptions or medication management in the emergency department Medications were administered in the Emergency Department. See MAR. Test considered but Not performed: Labs: no labs. Historians other than the Patient: Spouse/Significant Other: spouse. Care significantly affected by the following chronic conditions: none. 01/25 23:15 [place] [facility] [place]: take 1st row of mp; Complete Time: 23:33 neal Administered Medications: 23:33 Drug: Famotidine PO 20 mg PO once Route: PO; vc1 23:33 Follow up: Response: Medication administered at discharge. vc1 23:33 Drug: diphenhydrAMINE PO 50 mg PO once Route: PO; vc1 23:33 Follow up: Response: Medication administered at discharge. vc1 Disposition Summary: 01/25/25 23:22 Discharge Ordered Notes: Location: Home neal Problem: new neal Symptoms: have improved neal Condition: Stable neal Diagnosis - Allergy status to unspecified drugs, medicaments and biological substances status neal - Urticaria, unspecified nael Followup: neal - With: Private Physician - When: 2 - 3 days - Reason: Recheck today's complaints, Continuance of care, Re-evaluation by your physician Followup: neal - With: Jakub Loving MD - When: 2 - 3 days - Reason: Recheck today's complaints, Re-evaluation by your physician Discharge Instructions: - Discharge Summary Sheet neal - Drug Allergy neal - Hives neal - Rash, Adult neal - Rash, Adult, [id number] neal - Hives, [id number] neal Forms: - Medication Reconciliation Form neal - Antibiotic Education neal - Prescription Opioid Use neal - Patient Portal Instructions neal - Leadership Thank You Letter [facility] Prescriptions: - Benadryl 25 mg Oral capsule - take 2 capsules ORAL route every 6 hours As needed; 36 tablet; Refills: 0, neal Product Selection Permitted Signatures: Chelsea Whelan, VETERINARY ASSISTANT-C VETERINARY ASSISTANT-Ckb Quan Hernandez MD MD cha Calcote, Vanessa, RN RN vc1
--- NOTE | 2025-01-25 23:23 | ER ---
Nurse's Notes [facility] Name: Mary Jo Holder Age: 29 yrs Sex: Female : 1995 Arrival Date: 01/25/2025 Time: 22:52 Bed DX1 Private MD: Diagnosis: Allergy status to unspecified drugs, medicaments and biological substances status;Urticaria, unspecified Presentation: 01/25 22:52 Chief complaint: Patient states: HANDS, FEET, AND LIPS SWELLING. SEEN AT [facility] ER. vc1 Coronavirus screen: Client denies travel out of the [place] in the last 14 days. At this time, the client does not indicate any symptoms associated with coronavirus-19. Ebola Screen: Patient negative for fever greater than or equal to 101.5 degrees Fahrenheit, and additional compatible Ebola Virus Disease symptoms Patient denies exposure to infectious person. Patient denies travel to an Ebola-affected area in the 21 days before illness onset. No symptoms or risks identified at this time. Initial Sepsis Screen: Does the patient meet any 2 criteria? No. Patient's initial sepsis screen is negative. Does the patient have a suspected source of infection? No. Patient's initial sepsis screen is negative. Risk Assessment: Do you want to hurt yourself or someone else? Patient reports no desire to harm self or others. Onset of symptoms was January 25, 2025. Care prior to arrival: Medication(s) given: ONE BENADRYL AT ER, PREDNISOLONE AND PEPCID. 22:52 Method Of Arrival: Ambulatory vc1 22:52 Acuity: XIOMY 4 vc1 FOREST ECOLOGIST: 23:35 LMP 01/12/2025, unknown vc1 Historical: - Allergies: 23:19 No Known Allergies; vc1 - PMHx: 23:19 None; vc1 - PSHx: 23:19 None; vc1 - Immunization history:: Adult Immunizations up to date. - Infectious Disease History:: Denies. - Family history:: not pertinent. - Social history:: Smoking status: Patient denies any tobacco usage or history of. Screenin:34 [facility] ED Fall Risk Assessment (Adult) History of falling in the last 3 months, vc1 including since admission No falls in past 3 months (0 pts) Confusion or Disorientation No (0 pts) Intoxicated or Sedated No (0 pts) Impaired Gait No (0 pts) Mobility Assist Device Used No (0 pt) Altered Elimination No (0 pt) Score/Fall Risk Level 0 - 2 = Low Risk Oriented to surroundings, Maintained a safe environment, Educated pt \T\ family on fall prevention, incl call for assistance when getting out of bed, Provided non-skid footwear. Abuse screen: Denies threats or abuse. Nutritional screening: No deficits noted. Tuberculosis screening: No symptoms or risk factors identified. Assessment: 23:36 General: Appears in no apparent distress. Behavior is calm, cooperative, appropriate vc1 for age. Pain: Complains of pain in right hand, left hand, right foot and left foot Pain does not radiate. Pain currently is 5 out of 10 on a pain scale. Neuro: Level of Consciousness is awake, alert, obeys commands, Oriented to person, place, time, situation, Appropriate for age. Cardiovascular: Capillary refill < 3 seconds Patient's skin is warm and dry. Respiratory: Airway is patent Respiratory effort is even, unlabored, Respiratory pattern is regular, symmetrical, Breath sounds are clear bilaterally. GI: No deficits noted. No signs and/or symptoms were reported involving the gastrointestinal system. : No deficits noted. No signs and/or symptoms were reported regarding the genitourinary system. EENT: No deficits noted. No signs and/or symptoms were reported regarding the EENT system. Derm: Skin is intact, is healthy with good turgor, SWELLING TO BILATERAL HAND AND FEET. Musculoskeletal: Circulation, motion, and sensation intact. Range of motion: intact in all extremities, Swelling present in right hand, left hand, right foot and left foot. Vital Signs: 22:52 BP 125 / 78; Pulse 72; Resp 16; Temp 98.3; Pulse Ox 97% ; Weight 61.23 kg; Height 5 ft. vc1 2 in. ; Pain 5/10; 22:52 Body Mass Index 24.69 (61.23 kg, 157.48 cm) vc1 22:52 Pain Scale: Adult vc1 ED Course: 23:01 Patient arrived in ED. im 23:02 Chelsea [facility]helan [facility]C [facility] kb 23:02 Quan Hernandez MD is Attending Physician. kb 23:08 Quan Hernandez MD is Attending Physician. neal 23:19 Triage completed. vc1 23:20 Arm band placed on right wrist. vc1 23:21 Jakub Loving MD is Referral Physician. [facility] 23:33 Anais Joseph, RN is Primary Nurse. vc1 23:35 Patient has correct armband on for positive identification. Bed in low position. vc1 Provided Education on: MEDICATIONS/ ALLERGIC REACTION. 23:36 No provider procedures requiring assistance completed. Patient did not have IV access vc1 during this emergency room visit. Administered Medications: 23:33 Drug: Famotidine PO 20 mg PO once Route: PO; vc1 23:33 Follow up: Response: Medication administered at discharge. vc1 23:33 Drug: diphenhydrAMINE PO 50 mg PO once Route: PO; vc1 23:33 Follow up: Response: Medication administered at discharge. vc1 Medication: 23:34 VIS not applicable for this client. vc1 Outcome: 23:22 Discharge ordered by . [facility] 23:36 Discharged to home ambulatory, with significant other, vc1 23:36 Condition: stable 23:36 Discharge instructions given to patient, Instructed on discharge instructions, follow up and referral plans. Demonstrated understanding of instructions, follow-up care, Prescriptions given X 1, 23:38 Patient left the ED. vc1 Signatures: Chelsea Whelan, GAS TESTER-C GAS TESTER-Ckb Quan Hernandez MD MD cha Calcote, Vanessa, RN RN vc1 Fabiana Flores
[2025-01-25] MEDS ORDERED: DIPHENHYDRAMINE 25 MG TAB/CAP ONE (23:27)
[2025-01-25] MEDS ORDERED: FAMOTIDINE 20 MG TAB ONE (23:28)
[2025-01-25 23:54] VITALS: BP 125/78; TEMP 98.3; O2SAT 97
== END 2025-01-25 23:38 | disposition home or self-care (01) ==
LOC: ER 22:52
DX: L50.9 Urticaria, unspecified (principal); Z88.9 Allergy status to unspecified drugs, medicaments and biological substances